=== PATIENT | male | born 1960 | race Two or more races ===

== ENCOUNTER 2018-10-25 16:24 | Inpatient (IN) | payer OTHER ==
[2018-10-25 17:56] VITALS: BMI 22.4
--- NOTE | 2018-10-25 21:29 | HP ---
CIWA Score - Admission Criteria OASAS Guidelines: Admission for Medically Managed Detox: Requires at least one of the followin. CIWA greater than 12 2. Seizures within the past 24 hours 3. Delirium tremens within the past 24 hours 4. Hallucinations within the past 24 hours 5. Acute intervention needed for co occurring medical disorder 6. Acute intervention needed for co occurring psychiatric disorder 7. Severe withdrawal that cannot be handled at a lower level of care (continued vomiting, continued diarrhea, abnormal vital signs) requiring intravenous medication and/or fluids 8. Admission ROS S - HPI Chief Complaint: Seeking admission to Rehab Allergies/Adverse Reactions: Allergies Allergy/AdvReac Type Severity Reaction Status Date / Time No Known Allergies Allergy Verified 10/25/18 20:15 History of Present Illness: 58 years old male with alcohol, cocaine and heroin dependence is seeking admission to rehab. Patient has medical history of Hep C, COPD, depression and anxiety. He reports suicide attempt in 2013 and denies suicidal ideation at this time. He is on methadone 70mg at [facility]. Dose is to be confirmed by the nurse Exam Limitations: No Limitations - Ebola screening Have you traveled outside of the country in the last 21 days: No (N) Have you had contact with anyone from an Ebola affected area: No Have you been sick,other than usual withdrawal symptoms: No Do you have a fever: No - Review of Systems Constitutional: No Symptoms Reported EENT: reports: No Symptoms Reported Respiratory: reports: No Symptoms reported Cardiac: reports: No Symptoms Reported GI: reports: No Symptoms Reported : reports: No Symptoms Reported Musculoskeletal: reports: No Symptoms Reported Integumentary: reports: No Symptoms Reported Neuro: reports: No Symptoms reported Endocrine: reports: No Symptoms Reported Hematology: reports: No Symptoms Reported Psychiatric: reports: No Sypmtoms Reported, Mood/Affect Appropiate, Orientated x3 Other Systems: Reviewed and Negative Patient History - Patient Medical History Hx Anemia: No Hx Asthma: No Hx Chronic Obstructive Pulmonary Disease (COPD): Yes (Not on medication) Hx Cancer: No Hx Cardiac Disorders: No Hx Congestive Heart Failure: No Hx Hypertension: No Hx Hypercholesterolemia: No Hx Pacemaker: No HX Cerebrovascular Accident: No Hx Seizures: No Hx Dementia: No Hx Diabetes: No Hx Gastrointestinal Disorders: No Hx Liver Disease: Yes (Hep C) Hx Genitourinary Disorders: No Hx Sexually Transmitted Disorders: No Hx Renal Disease (ESRD): No Hx Thyroid Disease: No Hx Human Immunodeficiency Virus (HIV): No (Negative 2017) Hx Hepatitis C: Yes (Not on medication) Hx Depression: Yes (Trazodone, Zyprexa) Hx Suicide Attempt: Yes (Attempt in 2014. Denies suicidal ideation at this time) Hx Bipolar Disorder: Yes Hx Schizophrenia: Yes Other Medical History: Anxiety - Not on medication - Patient Surgical History Past Surgical History: No - PPD History Previous Implant?: Yes Documented Results: Negative w/o proof Implanted On Prior R Admission?: No PPD to be Administered?: Yes - Reproductive History Patient is a Female of Child Bearing Age (11 -55 yrs old): No (Male) - Smoking Cessation Smoking history: Current every day smoker Have you smoked in the past 12 months: Yes Aproximately how many cigarettes per day: 6 Hx Chewing Tobacco Use: No Initiated information on smoking cessation: Yes 'Breaking Loose' booklet given: 10/25/18 - Substance & Tx. History Hx Alcohol Use: Yes Hx Substance Use: Yes Substance Use Type: Alcohol, Cocaine, Heroin Hx Substance Use Treatment: Yes ([facility]) - Substances Abused Alcohol Route: Oral Frequency: Daily Amount used: BEER 10 X 40 OZ Age of first use: 14 Date of Last Use: 09/18/18 Heroin Route: Injection Frequency: Daily Amount used: $80 Age of first use: 39 Date of Last Use: 09/18/18 Family Disease History - Family Disease History Family History: Denies Admission Physical Exam BHS - Vital Signs Vital Signs: Vital Signs - 24 hr 10/25/18 17:33 Temperature 97.7 F Pulse Rate 64 Respiratory 18 Rate Blood Pressure 112/68 - Physical General Appearance: Yes: No Apparent Distress HEENTM: Yes: EOMI, Normal ENT Inspection, Normocephalic, Normal Voice, FEROZ Respiratory: Yes: Lungs Clear, Normal Breath Sounds, No Respiratory Distress Neck: Yes: Supple Breast: Yes: Breast Exam Deferred Cardiology: Yes: Regular Rhythm, Regular Rate Abdominal: Yes: Normal Bowel Sounds Genitourinary: Yes: Within Normal Limits Back: Yes: Normal Inspection Musculoskeletal: Yes: Within Normal Limits Extremities: Yes: Normal Inspection Neurological: Yes: 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 NML intact, Alert, Normal Mood/Affect Integumentary: Yes: Warm Lymphatic: Yes: Within Normal Limits - Diagnostic (1) Cocaine dependence Current Visit: Yes Status: Chronic Qualifiers: Substance use status: uncomplicated Qualified Code(s): F14.20 - Cocaine dependence, uncomplicated (2) Heroin dependence Current Visit: Yes Status: Chronic (3) Alcohol dependence Current Visit: Yes Status: Chronic Qualifiers: Substance use status: uncomplicated Qualified Code(s): F10.20 - Alcohol dependence, uncomplicated (4) COPD (chronic obstructive pulmonary disease) Current Visit: Yes Status: Chronic Qualifiers: COPD type: unspecified COPD Qualified Code(s): J44.9 - Chronic obstructive pulmonary disease, unspecified (5) Hep C w/o coma, chronic Current Visit: Yes Status: Chronic (6) Nicotine dependence Current Visit: Yes Status: Chronic Qualifiers: Nicotine product type: cigarettes Substance use status: uncomplicated Qualified Code(s): F17.210 - Nicotine dependence, cigarettes, uncomplicated Cleared for Admission B[facility] - Detox or Rehab [facility] Level of Care: Observation Bed Claeared for Rehab Admission: Yes [facility] Breath Alcohol Content Breath Alcohol Content: 0 Urine Drug Screen - Results Drug Screen Negative: No Urine Drug Screen Results: MTD-Methadone Inpatient Rehab Admission - Initial Determination Are CD services needed?: Yes Free of communicable disease: Yes Not in need of hospitalization: Yes - Rehab Admission Criteria Previous failed treatment: Yes Poor recovery environment: Yes Comorbidities: Yes Lacks judgement: No Patient is meeting Inpatient Rehab admission criteria:: Yes
[2018-10-25] MEDS ORDERED: P-EPHED 60MG/TRIPROLIDI 2.5MG TABLET PO PRN (21:54)
[2018-10-25] MEDS ORDERED: MAGNESIUM CITRATE 300 ML BOTTLE PO PRN (21:54)
[2018-10-25] MEDS ORDERED: LOPERAMIDE HCL 2 MG CAPSULE PO PRN (21:54)
[2018-10-25] MEDS ORDERED: MAG HYDROX/AL HYDROX/SIMETH 30 ML UNIT-DOSE CUP PO PRN (21:54)
[2018-10-25] MEDS ORDERED: ACETAMINOPHEN 325 MG TABLET (FP) PO PRN (21:54)
[2018-10-25] MEDS ORDERED: guaiFENesin/D-METHORPHAN HB 10 ML UNIT-DOSE CUPS PO PRN (21:54)
[2018-10-25] MEDS ORDERED: NICOTINE POLACRILEX 2 MG GUM BC PRN (21:54)
[2018-10-25] MEDS ORDERED: IBUPROFEN 400 MG TABLET (FP) PO PRN (21:54)
[2018-10-25] MEDS ORDERED: TUBERCULIN PPD 5 TU/0.1ML VIAL ID ONE (23:57)
[2018-10-26] MEDS: MELATONIN 5 MG TABLETS PO PRN (00:10)
[2018-10-26] MEDS: THIAMINE HCL 100 MG TABLET (FP) PO SCH ×2 (00:10→21:29)
[2018-10-26 03:46] LABS: URINE APPEARANCE CLEAR; URINE BILIRUBIN NEGATIVE (<2.0 mg/dL); URINE COLOR YELLOW; URINE GLUCOSE (UA) NEGATIVE (NEGATIVE); URINE KETONE NEGATIVE (NEGATIVE); URINE LEUK ESTERASE NEGATIVE (NEGATIVE); URINE NITRITE NEGATIVE (NEGATIVE); URINE PROTEIN NEGATIVE (NEGATIVE); URINE UROBILINOGEN NEGATIVE mg/dL (0.2-1.0)
[2018-10-26] MEDS: MAGNESIUM HYDROX 2400MG/30ML ORAL SUSPENSION 30 ML CUP PO PRN (06:27)
[2018-10-26] MEDS ORDERED: METHADONE HCL 10 MG TABLET PO SCH (09:30)
[2018-10-26] MEDS: PRENATAL VITAMINS W/ FOLIC ACID TABLET (FP) PO SCH (09:42)
[2018-10-26] MEDS: NICOTINE 14 MG/24 HOURS TOPICAL PATCH TD SCH (09:42)
[2018-10-26] MEDS: APIXABAN 5 MG TABLET PO SCH ×2 (09:42→21:29)
[2018-10-26 11:15] LABS: HEMATOCRIT 35.5 % (35.4-49); HEMOGLOBIN 11.9 GM/dL (11.7-16.9); MCH 32.7 pg (25.7-33.7); MCHC 33.5 g/dl (32.0-35.9); MEAN CELL VOLUME 97.6 fl (80-96); PLATELET COUNT 189 K/MM3 (134-434); RBC 3.64 M/mm3 (4.00-5.60); WHITE BLOOD COUNT 5.8 K/mm3 (4.0-10.0)
[2018-10-26 12:18] LABS: ALBUMIN 3.4 g/dl (3.4-5.0); ALK PHOS 105 U/L (45-117); ANION GAP 9 MMOL/L (8-16); BILIRUBIN,TOTAL 0.2 mg/dL (0.2-1); BLOOD UREA NITROGEN 17 mg/dL (7-18); CALCIUM 8.6 mg/dL (8.5-10.1); CHLORIDE 101 mmol/L (98-107); CO2 30 mmol/L (21-32); CREATININE 0.8 mg/dL (0.55-1.3); GLUCOSE,RANDOM 103 mg/dL (74-106); POTASSIUM 4.2 mmol/L (3.5-5.1); SGOT/AST 30 U/L (15-37); SGPT/ALT 45 U/L (13-61); SODIUM 140 mmol/L (136-145)
[2018-10-26] MEDS: DOCUSATE SODIUM 100 MG CAPSULE (FP) PO SCH ×2 (14:43→21:29)
--- NOTE | 2018-10-26 19:39 | PN ---
Barb Progress Note Note: Psychiatric nurse practitioner software implementation specialist note: Call received by RN requesting patient's psychotropic medications. Unstacker able to speak to patient. Patient alert and oriented X3. Patient admitted to [facility] this morning. States he has not received his psychotropic medications in 24 hours. Reports taking zyprexa 10mg BID + remeron 30mg + Trazodone 50mg HS. Mr Bertrand reports compliance with his medication regimen. Patient was recently discharged from [facility]. Pharmacy claims reviewed and noted prescriptions for zyprexa 10mg BID + remeron 30mg qhs + Trazodone 50mg was electronically sent to patient's pharmacy on 10/25/18. Patient informed that his evening medications will be ordered. Morning dose of zyprexa 10mg will not be ordered until patient is seen by in house psychiatrist in the morning. Patient agreeable with plan.
[2018-10-26] MEDS: MIRTAZAPINE 30 MG TABLET (FP) PO SCH (21:29)
[2018-10-26] MEDS: OLANZapine 10 MG TABLET PO SCH (21:29)
[2018-10-26] MEDS: traZODone HCL 50 MG TABLET (FP) PO SCH (21:29)
[2018-10-27] MEDS ORDERED: METHADONE HCL 10 MG TABLET ONE (04:10)
[2018-10-27] MEDS ORDERED: METHADONE HCL 40 MG DISPERSABLE TABLET ONE (04:10)
[2018-10-27] MEDS: DOCUSATE SODIUM 100 MG CAPSULE (FP) PO SCH ×3 (05:46→21:36)
[2018-10-27] MEDS: METHADONE 40 MG, METHADONE 30 MG PO SCH (05:46)
[2018-10-27] MEDS: PRENATAL VITAMINS W/ FOLIC ACID TABLET (FP) PO SCH (10:03)
[2018-10-27] MEDS: APIXABAN 5 MG TABLET PO SCH ×2 (10:04→21:36)
[2018-10-27] MEDS: NICOTINE 14 MG/24 HOURS TOPICAL PATCH TD SCH (10:04)
[2018-10-27] MEDS ORDERED: OLANZapine 10 MG TABLET PO ONE (11:45)
[2018-10-27] MEDS: hydrOXYzine PAMOATE 50 MG CAPSULE (FP) PO PRN ×2 (17:53→23:52)
[2018-10-27] MEDS: MELATONIN 5 MG TABLETS PO PRN (21:36)
[2018-10-27] MEDS: THIAMINE HCL 100 MG TABLET (FP) PO SCH (21:36)
[2018-10-27] MEDS: OLANZapine 10 MG TABLET PO SCH (21:36)
[2018-10-27] MEDS: traZODone HCL 50 MG TABLET (FP) PO SCH (21:36)
[2018-10-27] MEDS: MIRTAZAPINE 30 MG TABLET (FP) PO SCH (21:36)
[2018-10-27] MEDS ORDERED: PT OWN MED DRAWER 7, Y5N ONE (22:21)
[2018-10-27] MEDS: MAGNESIUM HYDROX 2400MG/30ML ORAL SUSPENSION 30 ML CUP PO PRN (22:22)
[2018-10-28] MEDS ORDERED: METHADONE HCL 10 MG TABLET ONE (02:45)
[2018-10-28] MEDS ORDERED: METHADONE HCL 40 MG DISPERSABLE TABLET ONE (02:45)
[2018-10-28] MEDS: METHADONE 40 MG, METHADONE 30 MG PO SCH (06:06)
[2018-10-28] MEDS: hydrOXYzine PAMOATE 50 MG CAPSULE (FP) PO PRN ×4 (06:06→21:15)
[2018-10-28] MEDS: DOCUSATE SODIUM 100 MG CAPSULE (FP) PO SCH ×3 (06:06→21:14)
[2018-10-28] MEDS: PRENATAL VITAMINS W/ FOLIC ACID TABLET (FP) PO SCH (10:36)
[2018-10-28] MEDS: NICOTINE 14 MG/24 HOURS TOPICAL PATCH TD SCH (10:36)
[2018-10-28] MEDS: APIXABAN 5 MG TABLET PO SCH ×2 (10:36→21:14)
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
[2018-10-28] MEDS: THIAMINE HCL 100 MG TABLET (FP) PO SCH (21:14)
[2018-10-28] MEDS: traZODone HCL 50 MG TABLET (FP) PO SCH (21:14)
[2018-10-28] MEDS: MIRTAZAPINE 30 MG TABLET (FP) PO SCH (21:14)
[2018-10-28] MEDS: OLANZapine 10 MG TABLET PO SCH (21:14)
[2018-10-29] MEDS: hydrOXYzine PAMOATE 50 MG CAPSULE (FP) PO PRN ×4 (03:11→21:30)
[2018-10-29] MEDS ORDERED: METHADONE HCL 10 MG TABLET ONE (04:21)
[2018-10-29] MEDS ORDERED: METHADONE HCL 40 MG DISPERSABLE TABLET ONE (04:21)
[2018-10-29] MEDS: METHADONE 40 MG, METHADONE 30 MG PO SCH (06:02)
[2018-10-29] MEDS: DOCUSATE SODIUM 100 MG CAPSULE (FP) PO SCH ×3 (06:02→21:30)
--- NOTE | 2018-10-29 09:25 | PN ---
BHS Progress Note Note: PATIENT C/O ITCHING AND DRY EYES. HAS H/O SEASONAL ALLERGIES. EYE EXAM: +PERRLA , EOMS INTACT BL, MILD REDNESS OF CONJUNCTIVAE B/L. WILL ORDER VISINE I DROP OU QID AND CONTINUE TO MONITOR CLINICALLY.
[2018-10-29] MEDS: APIXABAN 5 MG TABLET PO SCH ×2 (10:16→21:30)
[2018-10-29] MEDS: PRENATAL VITAMINS W/ FOLIC ACID TABLET (FP) PO SCH (10:16)
[2018-10-29] MEDS: NICOTINE 14 MG/24 HOURS TOPICAL PATCH TD SCH (10:16)
[2018-10-29] MEDS: NAPHAZOLINE/PHENIRAMINE OPHTHALMIC 15 ML BOTTLE OU PRN ×2 (13:26→21:29)
--- NOTE | 2018-10-29 14:42 | PN ---
Barb Progress Note Note: Psychiatric nurse practitioner note: Chart reviewed. Pharmacy claims reviewed. Patient with a history of schizophrenia vs. schizoaffetive disorder. He was recently discharged from [facility]. Patient's home medications are: zyprexa 10mg BID + Mirtzapine 30mg qhs + trazodone 50mg qhs. Patient able to tolerate evening dose. No adverse effects noted. Will resume patient on zyprexa 10mg BID.
[2018-10-29] MEDS: OLANZapine 10 MG TABLET PO SCH ×2 (14:54→21:30)
[2018-10-29] MEDS: traZODone HCL 50 MG TABLET (FP) PO SCH (21:30)
[2018-10-29] MEDS: MIRTAZAPINE 30 MG TABLET (FP) PO SCH (21:30)
[2018-10-29] MEDS: THIAMINE HCL 100 MG TABLET (FP) PO SCH (21:30)
[2018-10-29] MEDS: MELATONIN 5 MG TABLETS PO PRN (21:30)
[2018-10-29] MEDS ORDERED: OLANZapine 10 MG TABLET PO SCH (22:00)
[2018-10-30] MEDS ORDERED: METHADONE HCL 10 MG TABLET ONE (04:33)
[2018-10-30] MEDS ORDERED: METHADONE HCL 40 MG DISPERSABLE TABLET ONE (04:33)
[2018-10-30] MEDS: METHADONE 40 MG, METHADONE 30 MG PO SCH (06:06)
[2018-10-30] MEDS: DOCUSATE SODIUM 100 MG CAPSULE (FP) PO SCH ×3 (06:06→21:03)
[2018-10-30] MEDS: NAPHAZOLINE/PHENIRAMINE OPHTHALMIC 15 ML BOTTLE OU PRN ×3 (06:30→16:37)
[2018-10-30] MEDS: hydrOXYzine PAMOATE 50 MG CAPSULE (FP) PO PRN ×3 (06:31→15:50)
[2018-10-30] MEDS: OLANZapine 10 MG TABLET PO SCH ×2 (09:58→21:03)
[2018-10-30] MEDS: NICOTINE 14 MG/24 HOURS TOPICAL PATCH TD SCH (09:58)
[2018-10-30] MEDS: PRENATAL VITAMINS W/ FOLIC ACID TABLET (FP) PO SCH (09:58)
[2018-10-30] MEDS: APIXABAN 5 MG TABLET PO SCH ×2 (09:58→21:03)
[2018-10-30] MEDS: MIRTAZAPINE 30 MG TABLET (FP) PO SCH (21:03)
[2018-10-30] MEDS: MELATONIN 5 MG TABLETS PO PRN (21:03)
[2018-10-30] MEDS: traZODone HCL 50 MG TABLET (FP) PO SCH (21:03)
[2018-10-30] MEDS: THIAMINE HCL 100 MG TABLET (FP) PO SCH (22:02)
[2018-10-31] MEDS ORDERED: METHADONE HCL 10 MG TABLET ONE (04:04)
[2018-10-31] MEDS ORDERED: METHADONE HCL 40 MG DISPERSABLE TABLET ONE (04:04)
[2018-10-31] MEDS: DOCUSATE SODIUM 100 MG CAPSULE (FP) PO SCH ×3 (05:50→21:08)
[2018-10-31] MEDS: METHADONE 40 MG, METHADONE 30 MG PO SCH (05:50)
[2018-10-31] MEDS: hydrOXYzine PAMOATE 50 MG CAPSULE (FP) PO PRN ×4 (05:51→19:54)
[2018-10-31] MEDS: NAPHAZOLINE/PHENIRAMINE OPHTHALMIC 15 ML BOTTLE OU PRN ×3 (06:13→17:45)
[2018-10-31] MEDS ORDERED: PT OWN MED DRAWER 7, Y5N ONE ×2 (06:14→09:04)
[2018-10-31] MEDS: PRENATAL VITAMINS W/ FOLIC ACID TABLET (FP) PO SCH (09:57)
[2018-10-31] MEDS: OLANZapine 10 MG TABLET PO SCH ×2 (09:57→21:08)
[2018-10-31] MEDS: APIXABAN 5 MG TABLET PO SCH ×2 (09:57→21:08)
[2018-10-31] MEDS: NICOTINE 14 MG/24 HOURS TOPICAL PATCH TD SCH (09:58)
[2018-10-31] MEDS: THIAMINE HCL 100 MG TABLET (FP) PO SCH (21:08)
[2018-10-31] MEDS: MIRTAZAPINE 30 MG TABLET (FP) PO SCH (21:08)
[2018-10-31] MEDS: traZODone HCL 50 MG TABLET (FP) PO SCH (21:08)
[2018-10-31] MEDS: MELATONIN 5 MG TABLETS PO PRN (21:08)
[2018-11-01] MEDS ORDERED: METHADONE HCL 40 MG DISPERSABLE TABLET ONE (03:47)
[2018-11-01] MEDS ORDERED: METHADONE HCL 10 MG TABLET ONE (03:47)
[2018-11-01] MEDS: DOCUSATE SODIUM 100 MG CAPSULE (FP) PO SCH ×3 (05:51→21:24)
[2018-11-01] MEDS: METHADONE 40 MG, METHADONE 30 MG PO SCH (05:51)
[2018-11-01] MEDS: hydrOXYzine PAMOATE 50 MG CAPSULE (FP) PO PRN ×4 (08:28→21:24)
[2018-11-01] MEDS: PRENATAL VITAMINS W/ FOLIC ACID TABLET (FP) PO SCH (10:07)
[2018-11-01] MEDS: NICOTINE 14 MG/24 HOURS TOPICAL PATCH TD SCH (10:07)
[2018-11-01] MEDS: APIXABAN 5 MG TABLET PO SCH ×2 (10:07→21:24)
[2018-11-01] MEDS: OLANZapine 10 MG TABLET PO SCH ×2 (10:07→21:24)
[2018-11-01] MEDS: NAPHAZOLINE/PHENIRAMINE OPHTHALMIC 15 ML BOTTLE OU PRN (12:01)
[2018-11-01] MEDS: MAGNESIUM HYDROX 2400MG/30ML ORAL SUSPENSION 30 ML CUP PO PRN (12:59)
[2018-11-01] MEDS: traZODone HCL 50 MG TABLET (FP) PO SCH (21:24)
[2018-11-01] MEDS: THIAMINE HCL 100 MG TABLET (FP) PO SCH (21:24)
[2018-11-01] MEDS: MELATONIN 5 MG TABLETS PO PRN (21:24)
[2018-11-01] MEDS: MIRTAZAPINE 30 MG TABLET (FP) PO SCH (21:24)
[2018-11-02] MEDS ORDERED: METHADONE HCL 10 MG TABLET ONE (05:56)
[2018-11-02] MEDS ORDERED: METHADONE HCL 40 MG DISPERSABLE TABLET ONE (05:56)
[2018-11-02] MEDS: DOCUSATE SODIUM 100 MG CAPSULE (FP) PO SCH ×3 (06:07→21:03)
[2018-11-02] MEDS: METHADONE 40 MG, METHADONE 30 MG PO SCH (06:07)
[2018-11-02] MEDS: hydrOXYzine PAMOATE 50 MG CAPSULE (FP) PO PRN ×4 (06:44→19:22)
[2018-11-02] MEDS: OLANZapine 10 MG TABLET PO SCH ×2 (10:15→21:03)
[2018-11-02] MEDS: APIXABAN 5 MG TABLET PO SCH ×2 (10:15→21:03)
[2018-11-02] MEDS: PRENATAL VITAMINS W/ FOLIC ACID TABLET (FP) PO SCH (10:15)
[2018-11-02] MEDS: NICOTINE 14 MG/24 HOURS TOPICAL PATCH TD SCH (10:16)
[2018-11-02] MEDS: MAGNESIUM HYDROX 2400MG/30ML ORAL SUSPENSION 30 ML CUP PO PRN (11:29)
[2018-11-02] MEDS: MIRTAZAPINE 30 MG TABLET (FP) PO SCH (21:02)
[2018-11-02] MEDS: traZODone HCL 50 MG TABLET (FP) PO SCH (21:03)
[2018-11-02] MEDS: THIAMINE HCL 100 MG TABLET (FP) PO SCH (21:03)
[2018-11-03] MEDS ORDERED: METHADONE HCL 40 MG DISPERSABLE TABLET ONE (03:02)
[2018-11-03] MEDS ORDERED: METHADONE HCL 10 MG TABLET ONE (03:02)
[2018-11-03] MEDS: DOCUSATE SODIUM 100 MG CAPSULE (FP) PO SCH ×3 (06:06→21:23)
[2018-11-03] MEDS: hydrOXYzine PAMOATE 50 MG CAPSULE (FP) PO PRN ×3 (06:06→19:55)
[2018-11-03] MEDS: METHADONE 40 MG, METHADONE 30 MG PO SCH (06:06)
[2018-11-03] MEDS: OLANZapine 10 MG TABLET PO SCH ×2 (10:31→21:23)
[2018-11-03] MEDS: NICOTINE 14 MG/24 HOURS TOPICAL PATCH TD SCH (10:31)
[2018-11-03] MEDS: APIXABAN 5 MG TABLET PO SCH ×2 (10:31→21:23)
[2018-11-03] MEDS: PRENATAL VITAMINS W/ FOLIC ACID TABLET (FP) PO SCH (10:31)
[2018-11-03] MEDS: NAPHAZOLINE/PHENIRAMINE OPHTHALMIC 15 ML BOTTLE OU PRN (11:34)
[2018-11-03] MEDS ORDERED: PT OWN MED DRAWER 7, Y5N ONE (11:36)
[2018-11-03] MEDS: MIRTAZAPINE 30 MG TABLET (FP) PO SCH (21:22)
[2018-11-03] MEDS: traZODone HCL 50 MG TABLET (FP) PO SCH (21:23)
[2018-11-03] MEDS: THIAMINE HCL 100 MG TABLET (FP) PO SCH (21:23)
[2018-11-04] MEDS ORDERED: METHADONE HCL 40 MG DISPERSABLE TABLET ONE (04:19)
[2018-11-04] MEDS ORDERED: METHADONE HCL 10 MG TABLET ONE (04:19)
[2018-11-04] MEDS: METHADONE 40 MG, METHADONE 30 MG PO SCH (05:44)
[2018-11-04] MEDS: DOCUSATE SODIUM 100 MG CAPSULE (FP) PO SCH ×3 (05:44→21:10)
[2018-11-04] MEDS: hydrOXYzine PAMOATE 50 MG CAPSULE (FP) PO PRN ×3 (05:58→21:10)
[2018-11-04] MEDS: NICOTINE 14 MG/24 HOURS TOPICAL PATCH TD SCH (09:53)
[2018-11-04] MEDS: APIXABAN 5 MG TABLET PO SCH ×2 (09:53→21:10)
[2018-11-04] MEDS: PRENATAL VITAMINS W/ FOLIC ACID TABLET (FP) PO SCH (09:53)
[2018-11-04] MEDS: OLANZapine 10 MG TABLET PO SCH ×2 (09:53→21:12)
[2018-11-04] MEDS: NAPHAZOLINE/PHENIRAMINE OPHTHALMIC 15 ML BOTTLE OU PRN ×2 (09:54→21:23)
[2018-11-04] MEDS: traZODone HCL 50 MG TABLET (FP) PO SCH (21:10)
[2018-11-04] MEDS: MIRTAZAPINE 30 MG TABLET (FP) PO SCH (21:10)
[2018-11-04] MEDS: MELATONIN 5 MG TABLETS PO PRN (21:10)
[2018-11-04] MEDS: THIAMINE HCL 100 MG TABLET (FP) PO SCH (21:12)
[2018-11-04] MEDS ORDERED: PT OWN MED DRAWER 7, Y5N ONE (21:22)
[2018-11-05] MEDS ORDERED: METHADONE HCL 10 MG TABLET ONE (04:12)
[2018-11-05] MEDS ORDERED: METHADONE HCL 40 MG DISPERSABLE TABLET ONE (04:13)
[2018-11-05] MEDS: METHADONE 40 MG, METHADONE 30 MG PO SCH (05:53)
[2018-11-05] MEDS: DOCUSATE SODIUM 100 MG CAPSULE (FP) PO SCH ×3 (05:53→21:25)
[2018-11-05] MEDS: hydrOXYzine PAMOATE 50 MG CAPSULE (FP) PO PRN ×4 (05:55→21:25)
[2018-11-05] MEDS: NAPHAZOLINE/PHENIRAMINE OPHTHALMIC 15 ML BOTTLE OU PRN (10:12)
[2018-11-05] MEDS: OLANZapine 10 MG TABLET PO SCH ×2 (10:13→21:25)
[2018-11-05] MEDS: APIXABAN 5 MG TABLET PO SCH ×2 (10:13→21:25)
[2018-11-05] MEDS: PRENATAL VITAMINS W/ FOLIC ACID TABLET (FP) PO SCH (10:13)
[2018-11-05] MEDS: NICOTINE 14 MG/24 HOURS TOPICAL PATCH TD SCH (10:13)
[2018-11-05] MEDS: SELENIUM SULFIDE 2.25% 180 ML SHAMPOO TP SCH (14:11)
[2018-11-05] MEDS: MENTHOL/PHENOL 1 EACH UD MM PRN (15:11)
[2018-11-05] MEDS: MIRTAZAPINE 30 MG TABLET (FP) PO SCH (21:25)
[2018-11-05] MEDS: THIAMINE HCL 100 MG TABLET (FP) PO SCH (21:25)
[2018-11-05] MEDS: traZODone HCL 50 MG TABLET (FP) PO SCH (21:25)
[2018-11-05] MEDS: MELATONIN 5 MG TABLETS PO PRN (21:25)
[2018-11-06] MEDS ORDERED: METHADONE HCL 10 MG TABLET ONE (04:07)
[2018-11-06] MEDS ORDERED: METHADONE HCL 40 MG DISPERSABLE TABLET ONE (04:07)
[2018-11-06] MEDS: NAPHAZOLINE/PHENIRAMINE OPHTHALMIC 15 ML BOTTLE OU PRN ×3 (05:59→21:09)
[2018-11-06] MEDS: hydrOXYzine PAMOATE 50 MG CAPSULE (FP) PO PRN ×3 (05:59→14:23)
[2018-11-06] MEDS: DOCUSATE SODIUM 100 MG CAPSULE (FP) PO SCH ×3 (05:59→21:10)
[2018-11-06] MEDS: METHADONE 40 MG, METHADONE 30 MG PO SCH (05:59)
[2018-11-06] MEDS ORDERED: PT OWN MED DRAWER 7, Y5N ONE (05:59)
[2018-11-06] MEDS: MENTHOL/PHENOL 1 EACH UD MM PRN (08:25)
[2018-11-06] MEDS: SELENIUM SULFIDE 2.25% 180 ML SHAMPOO TP SCH (10:13)
[2018-11-06] MEDS: NICOTINE 14 MG/24 HOURS TOPICAL PATCH TD SCH (10:13)
[2018-11-06] MEDS: PRENATAL VITAMINS W/ FOLIC ACID TABLET (FP) PO SCH (10:13)
[2018-11-06] MEDS: OLANZapine 10 MG TABLET PO SCH ×2 (10:13→21:10)
[2018-11-06] MEDS: APIXABAN 5 MG TABLET PO SCH ×2 (10:13→21:10)
[2018-11-06] MEDS: traZODone HCL 50 MG TABLET (FP) PO SCH (21:10)
[2018-11-06] MEDS: THIAMINE HCL 100 MG TABLET (FP) PO SCH (21:10)
[2018-11-06] MEDS: MIRTAZAPINE 30 MG TABLET (FP) PO SCH (21:10)
[2018-11-07] MEDS ORDERED: METHADONE HCL 40 MG DISPERSABLE TABLET ONE (02:47)
[2018-11-07] MEDS ORDERED: METHADONE HCL 10 MG TABLET ONE (02:47)
[2018-11-07] MEDS: DOCUSATE SODIUM 100 MG CAPSULE (FP) PO SCH ×3 (06:11→21:29)
[2018-11-07] MEDS: hydrOXYzine PAMOATE 50 MG CAPSULE (FP) PO PRN ×4 (06:11→21:29)
[2018-11-07] MEDS: METHADONE 40 MG, METHADONE 30 MG PO SCH (06:11)
[2018-11-07] MEDS: APIXABAN 5 MG TABLET PO SCH ×2 (10:19→21:29)
[2018-11-07] MEDS: PRENATAL VITAMINS W/ FOLIC ACID TABLET (FP) PO SCH (10:19)
[2018-11-07] MEDS: NAPHAZOLINE/PHENIRAMINE OPHTHALMIC 15 ML BOTTLE OU PRN (10:19)
[2018-11-07] MEDS: OLANZapine 10 MG TABLET PO SCH ×2 (10:19→21:29)
[2018-11-07] MEDS: NICOTINE 14 MG/24 HOURS TOPICAL PATCH TD SCH (10:20)
[2018-11-07] MEDS: SELENIUM SULFIDE 2.25% 180 ML SHAMPOO TP SCH (10:20)
[2018-11-07] MEDS: MAGNESIUM HYDROX 2400MG/30ML ORAL SUSPENSION 30 ML CUP PO PRN (19:24)
[2018-11-07] MEDS: traZODone HCL 50 MG TABLET (FP) PO SCH (21:29)
[2018-11-07] MEDS: MELATONIN 5 MG TABLETS PO PRN (21:29)
[2018-11-07] MEDS: MIRTAZAPINE 30 MG TABLET (FP) PO SCH (21:29)
[2018-11-07] MEDS: THIAMINE HCL 100 MG TABLET (FP) PO SCH (21:29)
[2018-11-08] MEDS ORDERED: METHADONE HCL 40 MG DISPERSABLE TABLET ONE (05:58)
[2018-11-08] MEDS ORDERED: METHADONE HCL 10 MG TABLET ONE (05:58)
[2018-11-08] MEDS: METHADONE 40 MG, METHADONE 30 MG PO SCH (06:05)
[2018-11-08] MEDS: DOCUSATE SODIUM 100 MG CAPSULE (FP) PO SCH ×3 (06:05→21:13)
[2018-11-08] MEDS: hydrOXYzine PAMOATE 50 MG CAPSULE (FP) PO PRN ×4 (06:05→21:13)
[2018-11-08] MEDS: NAPHAZOLINE/PHENIRAMINE OPHTHALMIC 15 ML BOTTLE OU PRN ×2 (09:45→21:13)
[2018-11-08] MEDS: APIXABAN 5 MG TABLET PO SCH ×2 (09:45→21:13)
[2018-11-08] MEDS: PRENATAL VITAMINS W/ FOLIC ACID TABLET (FP) PO SCH (09:45)
[2018-11-08] MEDS: OLANZapine 10 MG TABLET PO SCH ×2 (09:45→21:13)
[2018-11-08] MEDS: SELENIUM SULFIDE 2.25% 180 ML SHAMPOO TP SCH (09:46)
[2018-11-08] MEDS: NICOTINE 14 MG/24 HOURS TOPICAL PATCH TD SCH (09:46)
[2018-11-08] MEDS: traZODone HCL 50 MG TABLET (FP) PO SCH (21:13)
[2018-11-08] MEDS: THIAMINE HCL 100 MG TABLET (FP) PO SCH (21:13)
[2018-11-08] MEDS: MAGNESIUM HYDROX 2400MG/30ML ORAL SUSPENSION 30 ML CUP PO PRN (21:13)
[2018-11-08] MEDS: MIRTAZAPINE 30 MG TABLET (FP) PO SCH (21:14)
[2018-11-08] MEDS: MELATONIN 5 MG TABLETS PO PRN (21:14)
[2018-11-09] MEDS ORDERED: METHADONE HCL 10 MG TABLET ONE (03:10)
[2018-11-09] MEDS ORDERED: METHADONE HCL 40 MG DISPERSABLE TABLET ONE (03:10)
[2018-11-09] MEDS: hydrOXYzine PAMOATE 50 MG CAPSULE (FP) PO PRN ×4 (06:08→21:11)
[2018-11-09] MEDS: DOCUSATE SODIUM 100 MG CAPSULE (FP) PO SCH ×3 (06:08→21:11)
[2018-11-09] MEDS: METHADONE 40 MG, METHADONE 30 MG PO SCH (06:08)
[2018-11-09] MEDS: PRENATAL VITAMINS W/ FOLIC ACID TABLET (FP) PO SCH (10:15)
[2018-11-09] MEDS: OLANZapine 10 MG TABLET PO SCH ×2 (10:15→21:11)
[2018-11-09] MEDS: NAPHAZOLINE/PHENIRAMINE OPHTHALMIC 15 ML BOTTLE OU PRN ×2 (10:15→21:11)
[2018-11-09] MEDS: APIXABAN 5 MG TABLET PO SCH ×2 (10:15→21:11)
[2018-11-09] MEDS: LIDOCAINE 5% TOPICAL PATCH TP SCH (10:16)
[2018-11-09] MEDS: NICOTINE 14 MG/24 HOURS TOPICAL PATCH TD SCH (10:16)
[2018-11-09] MEDS: SELENIUM SULFIDE 2.25% 180 ML SHAMPOO TP SCH (10:18)
[2018-11-09] MEDS: MAGNESIUM HYDROX 2400MG/30ML ORAL SUSPENSION 30 ML CUP PO PRN (11:33)
[2018-11-09] MEDS: MELATONIN 5 MG TABLETS PO PRN (21:11)
[2018-11-09] MEDS: MIRTAZAPINE 30 MG TABLET (FP) PO SCH (21:11)
[2018-11-09] MEDS: traZODone HCL 50 MG TABLET (FP) PO SCH (21:11)
[2018-11-09] MEDS: THIAMINE HCL 100 MG TABLET (FP) PO SCH (21:11)
[2018-11-09] MEDS: LIDOCAINE PATCH REMOVAL MC SCH (21:12)
[2018-11-10] MEDS ORDERED: METHADONE HCL 40 MG DISPERSABLE TABLET ONE (02:38)
[2018-11-10] MEDS ORDERED: METHADONE HCL 10 MG TABLET ONE (02:38)
[2018-11-10] MEDS: DOCUSATE SODIUM 100 MG CAPSULE (FP) PO SCH ×3 (06:28→21:40)
[2018-11-10] MEDS: hydrOXYzine PAMOATE 50 MG CAPSULE (FP) PO PRN ×4 (06:28→19:34)
[2018-11-10] MEDS: METHADONE 40 MG, METHADONE 30 MG PO SCH (06:28)
[2018-11-10] MEDS: OLANZapine 10 MG TABLET PO SCH ×2 (09:32→21:40)
[2018-11-10] MEDS: APIXABAN 5 MG TABLET PO SCH ×2 (09:32→21:40)
[2018-11-10] MEDS: PRENATAL VITAMINS W/ FOLIC ACID TABLET (FP) PO SCH (09:32)
[2018-11-10] MEDS: NAPHAZOLINE/PHENIRAMINE OPHTHALMIC 15 ML BOTTLE OU PRN ×2 (09:32→21:40)
[2018-11-10] MEDS: SELENIUM SULFIDE 2.25% 180 ML SHAMPOO TP SCH (09:33)
[2018-11-10] MEDS: NICOTINE 14 MG/24 HOURS TOPICAL PATCH TD SCH (09:33)
[2018-11-10] MEDS: LIDOCAINE 5% TOPICAL PATCH TP SCH (09:33)
[2018-11-10] MEDS: THIAMINE HCL 100 MG TABLET (FP) PO SCH (21:40)
[2018-11-10] MEDS: MELATONIN 5 MG TABLETS PO PRN (21:40)
[2018-11-10] MEDS: traZODone HCL 50 MG TABLET (FP) PO SCH (21:40)
[2018-11-10] MEDS: MIRTAZAPINE 30 MG TABLET (FP) PO SCH (21:40)
[2018-11-10] MEDS: LIDOCAINE PATCH REMOVAL MC SCH (21:41)
[2018-11-10] MEDS ORDERED: SUVOREXANT 10 MG TABLET PO PRN (22:00)
[2018-11-11] MEDS ORDERED: METHADONE HCL 10 MG TABLET ONE (02:40)
[2018-11-11] MEDS ORDERED: METHADONE HCL 40 MG DISPERSABLE TABLET ONE (02:40)
[2018-11-11] MEDS: METHADONE 40 MG, METHADONE 30 MG PO SCH (06:03)
[2018-11-11] MEDS: DOCUSATE SODIUM 100 MG CAPSULE (FP) PO SCH ×3 (06:03→21:47)
[2018-11-11] MEDS: hydrOXYzine PAMOATE 50 MG CAPSULE (FP) PO PRN ×2 (06:04→14:31)
[2018-11-11] MEDS ORDERED: PT OWN MED DRAWER 7, Y5N ONE (08:46)
[2018-11-11] MEDS: PRENATAL VITAMINS W/ FOLIC ACID TABLET (FP) PO SCH (09:00)
[2018-11-11] MEDS: NICOTINE 14 MG/24 HOURS TOPICAL PATCH TD SCH (09:01)
[2018-11-11] MEDS: LIDOCAINE 5% TOPICAL PATCH TP SCH (09:01)
[2018-11-11] MEDS: APIXABAN 5 MG TABLET PO SCH ×2 (09:01→21:47)
[2018-11-11] MEDS: SELENIUM SULFIDE 2.25% 180 ML SHAMPOO TP SCH (09:02)
[2018-11-11] MEDS: NAPHAZOLINE/PHENIRAMINE OPHTHALMIC 15 ML BOTTLE OU PRN (10:19)
[2018-11-11] MEDS: OLANZapine 10 MG TABLET PO SCH ×2 (10:53→21:47)
[2018-11-11] MEDS: MIRTAZAPINE 30 MG TABLET (FP) PO SCH (21:47)
[2018-11-11] MEDS: traZODone HCL 50 MG TABLET (FP) PO SCH (21:47)
[2018-11-11] MEDS: THIAMINE HCL 100 MG TABLET (FP) PO SCH (21:47)
[2018-11-11] MEDS: LIDOCAINE PATCH REMOVAL MC SCH (21:47)
[2018-11-12] MEDS ORDERED: METHADONE HCL 10 MG TABLET ONE (02:59)
[2018-11-12] MEDS ORDERED: METHADONE HCL 40 MG DISPERSABLE TABLET ONE (03:00)
[2018-11-12] MEDS: METHADONE 40 MG, METHADONE 30 MG PO SCH (06:11)
[2018-11-12] MEDS: hydrOXYzine PAMOATE 50 MG CAPSULE (FP) PO PRN (06:12)
[2018-11-12] MEDS: DOCUSATE SODIUM 100 MG CAPSULE (FP) PO SCH ×3 (06:12→21:01)
[2018-11-12] MEDS: APIXABAN 5 MG TABLET PO SCH ×2 (10:17→21:02)
[2018-11-12] MEDS: PRENATAL VITAMINS W/ FOLIC ACID TABLET (FP) PO SCH (10:17)
[2018-11-12] MEDS: OLANZapine 10 MG TABLET PO SCH ×2 (10:17→21:01)
[2018-11-12] MEDS: NAPHAZOLINE/PHENIRAMINE OPHTHALMIC 15 ML BOTTLE OU PRN ×2 (10:17→21:01)
[2018-11-12] MEDS: LIDOCAINE 5% TOPICAL PATCH TP SCH (10:18)
[2018-11-12] MEDS: NICOTINE 14 MG/24 HOURS TOPICAL PATCH TD SCH (10:20)
[2018-11-12] MEDS: traZODone HCL 50 MG TABLET (FP) PO SCH (21:01)
[2018-11-12] MEDS: THIAMINE HCL 100 MG TABLET (FP) PO SCH (21:01)
[2018-11-12] MEDS: MELATONIN 5 MG TABLETS PO PRN (21:01)
[2018-11-12] MEDS: MIRTAZAPINE 30 MG TABLET (FP) PO SCH (21:02)
[2018-11-12] MEDS: LIDOCAINE PATCH REMOVAL MC SCH (21:06)
[2018-11-13] MEDS ORDERED: METHADONE HCL 40 MG DISPERSABLE TABLET ONE (02:54)
[2018-11-13] MEDS ORDERED: METHADONE HCL 10 MG TABLET ONE (02:54)
[2018-11-13] MEDS: METHADONE 40 MG, METHADONE 30 MG PO SCH (06:08)
[2018-11-13] MEDS: hydrOXYzine PAMOATE 50 MG CAPSULE (FP) PO PRN (06:08)
[2018-11-13] MEDS: DOCUSATE SODIUM 100 MG CAPSULE (FP) PO SCH ×3 (06:08→21:51)
[2018-11-13] MEDS: NAPHAZOLINE/PHENIRAMINE OPHTHALMIC 15 ML BOTTLE OU PRN (08:44)
[2018-11-13] MEDS: OLANZapine 10 MG TABLET PO SCH ×2 (10:27→21:52)
[2018-11-13] MEDS: NICOTINE 14 MG/24 HOURS TOPICAL PATCH TD SCH (10:27)
[2018-11-13] MEDS: APIXABAN 5 MG TABLET PO SCH ×2 (10:27→21:51)
[2018-11-13] MEDS: PRENATAL VITAMINS W/ FOLIC ACID TABLET (FP) PO SCH (10:27)
[2018-11-13] MEDS: LIDOCAINE 5% TOPICAL PATCH TP SCH (10:29)
[2018-11-13] MEDS: traZODone HCL 50 MG TABLET (FP) PO SCH (21:50)
[2018-11-13] MEDS: MIRTAZAPINE 30 MG TABLET (FP) PO SCH (21:50)
[2018-11-13] MEDS: LIDOCAINE PATCH REMOVAL MC SCH (21:51)
[2018-11-13] MEDS: THIAMINE HCL 100 MG TABLET (FP) PO SCH (21:52)
[2018-11-14] MEDS ORDERED: METHADONE HCL 40 MG DISPERSABLE TABLET ONE (05:37)
[2018-11-14] MEDS ORDERED: METHADONE HCL 10 MG TABLET ONE (05:37)
[2018-11-14] MEDS: METHADONE 40 MG, METHADONE 30 MG PO SCH (05:54)
[2018-11-14] MEDS: hydrOXYzine PAMOATE 50 MG CAPSULE (FP) PO PRN ×2 (05:55→15:32)
[2018-11-14] MEDS: DOCUSATE SODIUM 100 MG CAPSULE (FP) PO SCH ×3 (05:55→21:33)
[2018-11-14] MEDS: NAPHAZOLINE/PHENIRAMINE OPHTHALMIC 15 ML BOTTLE OU PRN (09:46)
[2018-11-14] MEDS: OLANZapine 10 MG TABLET PO SCH ×2 (09:46→21:34)
[2018-11-14] MEDS: PRENATAL VITAMINS W/ FOLIC ACID TABLET (FP) PO SCH (09:46)
[2018-11-14] MEDS: APIXABAN 5 MG TABLET PO SCH ×2 (09:46→21:29)
[2018-11-14] MEDS: NICOTINE 14 MG/24 HOURS TOPICAL PATCH TD SCH (09:46)
[2018-11-14] MEDS: LIDOCAINE 5% TOPICAL PATCH TP SCH (09:46)
[2018-11-14] MEDS: traZODone HCL 50 MG TABLET (FP) PO SCH (21:29)
[2018-11-14] MEDS: LIDOCAINE PATCH REMOVAL MC SCH (21:33)
[2018-11-14] MEDS: THIAMINE HCL 100 MG TABLET (FP) PO SCH (21:34)
[2018-11-14] MEDS: MIRTAZAPINE 30 MG TABLET (FP) PO SCH (21:34)
[2018-11-15] MEDS ORDERED: METHADONE HCL 40 MG DISPERSABLE TABLET ONE (03:50)
[2018-11-15] MEDS ORDERED: METHADONE HCL 10 MG TABLET ONE (03:50)
[2018-11-15] MEDS: DOCUSATE SODIUM 100 MG CAPSULE (FP) PO SCH ×3 (05:50→21:22)
[2018-11-15] MEDS: METHADONE 40 MG, METHADONE 30 MG PO SCH (05:50)
[2018-11-15] MEDS: OLANZapine 10 MG TABLET PO SCH ×2 (10:31→21:22)
[2018-11-15] MEDS: LIDOCAINE 5% TOPICAL PATCH TP SCH (10:31)
[2018-11-15] MEDS: PRENATAL VITAMINS W/ FOLIC ACID TABLET (FP) PO SCH (10:31)
[2018-11-15] MEDS: NAPHAZOLINE/PHENIRAMINE OPHTHALMIC 15 ML BOTTLE OU PRN (10:31)
[2018-11-15] MEDS: APIXABAN 5 MG TABLET PO SCH ×2 (10:31→21:21)
[2018-11-15] MEDS: NICOTINE 14 MG/24 HOURS TOPICAL PATCH TD SCH (10:31)
[2018-11-15] MEDS: traZODone HCL 50 MG TABLET (FP) PO SCH (21:21)
[2018-11-15] MEDS: THIAMINE HCL 100 MG TABLET (FP) PO SCH (21:22)
[2018-11-15] MEDS: MIRTAZAPINE 30 MG TABLET (FP) PO SCH (21:22)
[2018-11-15] MEDS: LIDOCAINE PATCH REMOVAL MC SCH (21:22)
[2018-11-16] MEDS ORDERED: METHADONE HCL 10 MG TABLET ONE (05:25)
[2018-11-16] MEDS ORDERED: METHADONE HCL 40 MG DISPERSABLE TABLET ONE (05:26)
[2018-11-16] MEDS: DOCUSATE SODIUM 100 MG CAPSULE (FP) PO SCH ×3 (05:27→21:06)
[2018-11-16] MEDS: METHADONE 40 MG, METHADONE 30 MG PO SCH (05:27)
[2018-11-16] MEDS: LIDOCAINE 5% TOPICAL PATCH TP SCH (09:41)
[2018-11-16] MEDS: NAPHAZOLINE/PHENIRAMINE OPHTHALMIC 15 ML BOTTLE OU PRN (09:41)
[2018-11-16] MEDS: NICOTINE 14 MG/24 HOURS TOPICAL PATCH TD SCH (09:41)
[2018-11-16] MEDS: OLANZapine 10 MG TABLET PO SCH ×2 (09:41→21:07)
[2018-11-16] MEDS: PRENATAL VITAMINS W/ FOLIC ACID TABLET (FP) PO SCH (09:41)
[2018-11-16] MEDS: APIXABAN 5 MG TABLET PO SCH ×2 (09:41→21:06)
[2018-11-16] MEDS: MIRTAZAPINE 30 MG TABLET (FP) PO SCH (21:06)
[2018-11-16] MEDS: traZODone HCL 50 MG TABLET (FP) PO SCH (21:06)
[2018-11-16] MEDS: THIAMINE HCL 100 MG TABLET (FP) PO SCH (21:07)
[2018-11-16] MEDS: LIDOCAINE PATCH REMOVAL MC SCH (21:07)
[2018-11-17] MEDS ORDERED: METHADONE HCL 10 MG TABLET ONE (05:08)
[2018-11-17] MEDS ORDERED: METHADONE HCL 40 MG DISPERSABLE TABLET ONE (05:09)
[2018-11-17] MEDS: DOCUSATE SODIUM 100 MG CAPSULE (FP) PO SCH ×3 (06:38→21:00)
[2018-11-17] MEDS: METHADONE 40 MG, METHADONE 30 MG PO SCH (06:38)
[2018-11-17] MEDS: LIDOCAINE 5% TOPICAL PATCH TP SCH (09:40)
[2018-11-17] MEDS: PRENATAL VITAMINS W/ FOLIC ACID TABLET (FP) PO SCH (09:40)
[2018-11-17] MEDS: APIXABAN 5 MG TABLET PO SCH ×2 (09:40→21:00)
[2018-11-17] MEDS: NAPHAZOLINE/PHENIRAMINE OPHTHALMIC 15 ML BOTTLE OU PRN (09:40)
[2018-11-17] MEDS: OLANZapine 10 MG TABLET PO SCH ×2 (09:40→21:00)
[2018-11-17] MEDS: NICOTINE 14 MG/24 HOURS TOPICAL PATCH TD SCH (09:40)
[2018-11-17] MEDS: traZODone HCL 50 MG TABLET (FP) PO SCH (21:00)
[2018-11-17] MEDS: THIAMINE HCL 100 MG TABLET (FP) PO SCH (21:00)
[2018-11-17] MEDS: MIRTAZAPINE 30 MG TABLET (FP) PO SCH (21:00)
[2018-11-17] MEDS: LIDOCAINE PATCH REMOVAL MC SCH (21:00)
[2018-11-18] MEDS ORDERED: METHADONE HCL 10 MG TABLET ONE (02:44)
[2018-11-18] MEDS ORDERED: METHADONE HCL 40 MG DISPERSABLE TABLET ONE (02:45)
[2018-11-18] MEDS: METHADONE 40 MG, METHADONE 30 MG PO SCH (06:01)
[2018-11-18] MEDS: DOCUSATE SODIUM 100 MG CAPSULE (FP) PO SCH ×3 (06:01→21:08)
[2018-11-18] MEDS ORDERED: PT OWN MED DRAWER 7, Y5N ONE (08:51)
[2018-11-18] MEDS: PRENATAL VITAMINS W/ FOLIC ACID TABLET (FP) PO SCH (10:14)
[2018-11-18] MEDS: LIDOCAINE 5% TOPICAL PATCH TP SCH (10:14)
[2018-11-18] MEDS: OLANZapine 10 MG TABLET PO SCH ×2 (10:14→21:10)
[2018-11-18] MEDS: APIXABAN 5 MG TABLET PO SCH ×2 (10:14→21:08)
[2018-11-18] MEDS: NICOTINE 14 MG/24 HOURS TOPICAL PATCH TD SCH (10:15)
[2018-11-18] MEDS: NAPHAZOLINE/PHENIRAMINE OPHTHALMIC 15 ML BOTTLE OU PRN (10:15)
[2018-11-18] MEDS: MIRTAZAPINE 30 MG TABLET (FP) PO SCH (21:08)
[2018-11-18] MEDS: traZODone HCL 50 MG TABLET (FP) PO SCH (21:08)
[2018-11-18] MEDS: LIDOCAINE PATCH REMOVAL MC SCH (21:09)
[2018-11-18] MEDS: THIAMINE HCL 100 MG TABLET (FP) PO SCH (21:10)
[2018-11-19] MEDS ORDERED: METHADONE HCL 10 MG TABLET ONE (04:25)
[2018-11-19] MEDS ORDERED: METHADONE HCL 40 MG DISPERSABLE TABLET ONE (04:25)
[2018-11-19] MEDS: METHADONE 40 MG, METHADONE 30 MG PO SCH (06:09)
[2018-11-19] MEDS: DOCUSATE SODIUM 100 MG CAPSULE (FP) PO SCH ×3 (06:09→21:03)
[2018-11-19] MEDS: MAGNESIUM HYDROX 2400MG/30ML ORAL SUSPENSION 30 ML CUP PO PRN (06:25)
[2018-11-19] MEDS: NICOTINE 14 MG/24 HOURS TOPICAL PATCH TD SCH (09:44)
[2018-11-19] MEDS: APIXABAN 5 MG TABLET PO SCH ×2 (09:44→21:03)
[2018-11-19] MEDS: PRENATAL VITAMINS W/ FOLIC ACID TABLET (FP) PO SCH (09:44)
[2018-11-19] MEDS: OLANZapine 10 MG TABLET PO SCH ×2 (09:44→21:07)
[2018-11-19] MEDS: LIDOCAINE 5% TOPICAL PATCH TP SCH (09:44)
[2018-11-19] MEDS: NAPHAZOLINE/PHENIRAMINE OPHTHALMIC 15 ML BOTTLE OU PRN (09:45)
[2018-11-19] MEDS: traZODone HCL 50 MG TABLET (FP) PO SCH (21:04)
[2018-11-19] MEDS: LIDOCAINE PATCH REMOVAL MC SCH (21:04)
[2018-11-19] MEDS: MIRTAZAPINE 30 MG TABLET (FP) PO SCH (21:06)
[2018-11-19] MEDS: THIAMINE HCL 100 MG TABLET (FP) PO SCH (21:07)
[2018-11-20] MEDS ORDERED: METHADONE HCL 10 MG TABLET ONE (04:11)
[2018-11-20] MEDS ORDERED: METHADONE HCL 40 MG DISPERSABLE TABLET ONE (04:11)
[2018-11-20] MEDS ORDERED: METHADONE 40 MG, METHADONE 30 MG PO SCH (06:00)
[2018-11-20] MEDS ORDERED: METHADONE HCL 10 MG TABLET PO SCH (06:00)
[2018-11-20] MEDS: NAPHAZOLINE/PHENIRAMINE OPHTHALMIC 15 ML BOTTLE OU PRN (06:06)
[2018-11-20] MEDS: DOCUSATE SODIUM 100 MG CAPSULE (FP) PO SCH (06:07)
[2018-11-20 06:41] VITALS: BP 109/70; PULSE 65; TEMP 98.1
--- NOTE | 2018-11-20 06:47 | PN ---
Psychiatric Progress Note Vital Signs: Vital Signs Period Temp Pulse Resp BP Sys/Hernandez Pulse Ox Last 24 Hr 98.0 F 76 18-20 126/74 Date of Session: 11/20/18 Chief Complaint:: Discharge Note HPI: Patient addressing Alcohol, Opioid and Cocaine Dependence comorbid with Nicotine Dependence and Bipolar Disorder ROS: COPD, Hep C were medically addressed Current Medications: Active Medications Generic Name Dose Route Start Last Admin Trade Name Freq PRN Reason Stop Dose Admin Acetaminophen 650 mg 10/25/18 21:54 11/12/18 02:29 Tylenol - PO 650 mg Q4H PRN Administration FEVER Al Hydroxide/Mg Hydroxide 30 ml 10/25/18 21:54 Mylanta Oral Suspension - PO Q6H PRN DYSPEPSIA Apixaban 5 mg 10/26/18 10:00 11/19/18 21:03 Eliquis - PO 5 mg BID INEZ Administration Docusate Sodium 100 mg 10/26/18 14:00 11/20/18 06:07 Colace - PO 100 mg TID INEZ Administration Eucalyptus/Menthol/Phenol/Sorbitol 1 each 10/25/18 21:54 11/06/18 08:25 Cepastat Lozenge - MM 1 each Q4H PRN Administration SORE THROAT Guaifenesin 10 ml 10/25/18 21:54 11/07/18 10:29 Robitussin Dm - PO 10 ml Q6H PRN Administration COUGH Hydroxyzine Pamoate 50 mg 10/28/18 15:00 11/14/18 15:32 Vistaril - PO 50 mg Q4H PRN Administration FOR ITCHING Lidocaine 2 patch 11/09/18 10:00 11/19/18 09:44 Lidoderm Patch - TP 2 patch DAILY INEZ Administration Loperamide HCl 4 mg 10/25/18 21:54 Imodium - PO Q6H PRN DIARRHEA Magnesium Citrate 300 ml 10/25/18 21:54 Citroma - PO Q48H PRN CONSTIPATION Magnesium Hydroxide 30 ml 10/25/18 21:54 11/19/18 06:25 Milk Of Magnesia - PO 30 ml DAILY PRN Administration CONSTIPATION Melatonin 5 mg 10/25/18 22:00 11/12/18 21:01 Melatonin PO 5 mg HS PRN Administration INSOMNIA Methadone HCl 40 mg/ Methadone 70 mg 11/20/18 06:00 11/20/18 06:07 HCl 30 mg PO 70 mg DAILY@0600 INEZ Administration Mirtazapine 30 mg 10/26/18 22:00 11/19/18 21:06 Remeron - PO 30 mg HS INEZ Administration Miscellaneous 2 each 11/09/18 22:00 11/19/18 21:04 Lidoderm Patch Removal MC 2 each DAILY@2200 INEZ Administration Naphazoline HCl/Pheniramine Maleate 1 drop 10/29/18 09:23 11/20/18 06:06 Visine-A - OU 1 drop QID PRN Administration DRY EYES Nicotine 14 mg 10/26/18 10:00 11/19/18 09:44 Nicoderm Patch - TD 14 mg DAILY INEZ Administration Nicotine Polacrilex 2 mg 10/25/18 21:54 Nicorette Gum - BC Q2H PRN NICOTINE REPLACEMENT RX Olanzapine 10 mg 10/29/18 14:45 11/19/18 21:07 Zyprexa - PO Not Given BID INEZ Multivit/Folic Acid/Iron 1 tab 10/26/18 10:00 11/19/18 09:44 Vitamins (Sjr) - PO 1 tab DAILY INEZ Administration Pseudoephedrine/Triprolidine 1 combo 10/25/18 21:54 Actifed - PO TID PRN NASAL CONGESTION Thiamine HCl 100 mg 10/25/18 22:00 11/19/18 21:07 Vitamin B1 - PO Not Given HS INEZ Trazodone HCl 50 mg 10/26/18 22:00 11/19/18 21:04 Desyrel - PO 50 mg HS INEZ Administration Current Side Effect: No Lab tests ordered: Yes Lab tests reviewed: Yes Provider note:: Patient has completed this program today. 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 Told group underwriter that from his participation in this program, he has learned to identify his triggers and better ways to avoid them. He responded well to Zyprexa 10 mg po BID, Remeron 30 mg po HS and Trazadone 50 mg po HS. Scripts for 30 days supply of these medications are electronically transmitted to [facility] at [address] [place] [address]. He is stable for discharge today Total face to face time:: 35 Mental Status Exam - Mental Status Exam Alert and Oriented to: Time, Place, Person Cognitive Function: Fair Patient Appearance: Well Groomed Mood: Hopeful, Euthymic Affect: Appropriate Patient Behavior: Cooperative Speech Pattern: Clear Voice Loudness: Normal Thought Process: Intact, Goal Oriented Thought Disorder: Not Present Hallucinations: Denies Suicidal Ideation: Denies Homicidal Ideation: Denies Insight/Judgement: Fair Sleep: Fair Appetite: Good Muscle strength/Tone: Normal Gait/Station: Normal Psychiatric Treatment Plan - Problem List (1) Alcohol dependence Current Visit: Yes Qualifiers: Substance use status: uncomplicated Qualified Code(s): F10.20 - Alcohol dependence, uncomplicated (2) Opioid dependence Current Visit: Yes (3) Cocaine dependence Current Visit: Yes Qualifiers: Substance use status: uncomplicated Qualified Code(s): F14.20 - Cocaine dependence, uncomplicated (4) Nicotine dependence Current Visit: Yes Qualifiers: Nicotine product type: cigarettes Substance use status: uncomplicated Qualified Code(s): F17.210 - Nicotine dependence, cigarettes, uncomplicated (5) Bipolar disorder Current Visit: Yes (6) COPD (chronic obstructive pulmonary disease) Current Visit: Yes Qualifiers: COPD type: unspecified COPD Qualified Code(s): J44.9 - Chronic obstructive pulmonary disease, unspecified (7) Hep C w/o coma, chronic Current Visit: Yes Initial treatment plan: Patient is discharged today and referred to [facility] [place] for exterminator helper residential treatment
--- NOTE | 2018-11-20 08:34 | PN ---
Barb Progress Note Note: patient has history of dvt left leg,has been on eliquis 5 mgs po bid,and colace 100 mgs po tid for constipation e prescription to patient pharmacy, follow up with medical provider
== END 2018-11-20 08:41 | disposition home or self-care (01) | DRG 772 ==
LOC: YASAS 16:24 → Y3W 20:31
PROVIDERS: ADMIT Psychiatry & Neurology Psychiatry; ATTEND Psychiatry & Neurology Psychiatry
PROC: HZ42ZZZ Group Counseling for Substance Abuse Treatment, Cognitive-Behavioral (ICD-10-PCS; principal; 2018-10-25)
DX: F11.20 Opioid dependence, uncomplicated (principal); F10.20 Alcohol dependence, uncomplicated; F14.20 Cocaine dependence, uncomplicated; F17.210 Nicotine dependence, cigarettes, uncomplicated; F31.9 Bipolar disorder, unspecified; J44.9 Chronic obstructive pulmonary disease, unspecified; B18.2 Chronic viral hepatitis C; H04.129 Dry eye syndrome of unspecified lacrimal gland; Z86.718 Personal history of other venous thrombosis and embolism; Z79.01 Long term (current) use of anticoagulants; Z91.5 Personal history of self-harm
CPT/HCPCS: 36415; 80053; 81003; 85027; 86593

== ENCOUNTER 2019-02-08 11:53 | Inpatient (IN) | payer OTHER ==
[2019-02-08 12:35] VITALS: BMI 23.1
--- NOTE | 2019-02-08 14:09 | HP ---
CIWA Score Nausea/Vomitin Muscle Tremors: 2 Anxiety: 3 Agitation: 0-Normal Activity Paroxysmal Sweats: 2 Orientation: 0-Oriented Tacttile Disturbances: 2-Mild Itch/Numbness/Burn (b/l hands) Auditory Disturbances: 0-None Visual Disturbances: 2-Mild Sensitivity Headache: 0-None Present CIWA-Ar Total Score: 14 - Admission Criteria OASAS Guidelines: Admission for Medically Managed Detox: Requires at least one of the followin. CIWA greater than 12 2. Seizures within the past 24 hours 3. Delirium tremens within the past 24 hours 4. Hallucinations within the past 24 hours 5. Acute intervention needed for co occurring medical disorder 6. Acute intervention needed for co occurring psychiatric disorder 7. Severe withdrawal that cannot be handled at a lower level of care (continued vomiting, continued diarrhea, abnormal vital signs) requiring intravenous medication and/or fluids 8. Patient presents the following: CIWA greater than 12 Admission Criteria Met: Admission criteria met Admission ROS [facility] Chief Complaint: " I am too old for this, three people I know , I need detox " Allergies/Adverse Reactions: Allergies Allergy/AdvReac Type Severity Reaction Status Date / Time No Known Allergies Allergy Verified 10/25/18 20:15 History of Present Illness: 58 yo male with hx of alcohol,cocaine and heroin dependence is here seeking alcohol detox. Last detox two months ago [facility] on methadone 70 mg last medicated today, dose pending verification. Patient has medical history of Hep C, COPD, depression and anxiety. He reports suicide attempt in 2013 and denies suicidal ideation at this time. Denies hx of seizures . Report hx of alcohol blackouts with last episode two months ago. Exam Limitations: No Limitations - Ebola screening Have you traveled outside of the country in the last 21 days: No (N) Have you had contact with anyone from an Ebola affected area: No Have you been sick,other than usual withdrawal symptoms: No Do you have a fever: No - Review of Systems Constitutional: Chills, Loss of Appetite, Changes in sleep, Weakness, Unintentional Wgt. Loss EENT: reports: No Symptoms Reported Respiratory: reports: No Symptoms reported Cardiac: reports: No Symptoms Reported GI: reports: Diarrhea, Nausea, Poor Appetite, Poor Fluid Intake, Vomiting : reports: Urgency Musculoskeletal: reports: No Symptoms Reported Integumentary: reports: No Symptoms Reported Neuro: reports: Tingling, Dizziness Endocrine: reports: Increased Thirst Hematology: reports: No Symptoms Reported Psychiatric: reports: Orientated x3, Anxious Other Systems: Reviewed and Negative Patient History - Patient Medical History Hx Anemia: No Hx Asthma: No Hx Chronic Obstructive Pulmonary Disease (COPD): Yes (Not on medication) Hx Cancer: No Hx Cardiac Disorders: No Hx Congestive Heart Failure: No Hx Hypertension: No Hx Hypercholesterolemia: No Hx Pacemaker: No HX Cerebrovascular Accident: No Hx Seizures: No Hx Dementia: No Hx Diabetes: No Hx Gastrointestinal Disorders: No Hx Liver Disease: Yes (Hep C) Hx Genitourinary Disorders: No Hx Sexually Transmitted Disorders: No Hx Renal Disease (ESRD): No Hx Thyroid Disease: No Hx Human Immunodeficiency Virus (HIV): No (Negative 2017) Hx Hepatitis C: Yes (Not on medication) Hx Depression: Yes Hx Suicide Attempt: Yes (Attempt in 2013. Denies suicidal ideation at this time) Hx Bipolar Disorder: Yes Hx Schizophrenia: Yes - Patient Surgical History Past Surgical History: No - PPD History Previous Implant?: No Documented Results: Negative w/proof Date: 10/28/18 PPD to be Administered?: No - Smoking Cessation Smoking history: Current every day smoker Have you smoked in the past 12 months: Yes Aproximately how many cigarettes per day: 6 Hx Chewing Tobacco Use: No Initiated information on smoking cessation: Yes 'Breaking Loose' booklet given: 02/08/19 - Substance & Tx. History Hx Alcohol Use: Yes Hx Substance Use: Yes Substance Use Type: Alcohol, Cocaine Hx Substance Use Treatment: Yes (Last detox two months ago [facility] - Substances Abused alcohol Route: Oral Frequency: Daily Amount used: 10 x 40 oz beers Age of first use: 14 Date of Last Use: 02/08/19 Cocaine Route: Inhalation Frequency: 1-2 times per week Amount used: $20 Age of first use: 24 Date of Last Use: 02/08/19 Benzodiazepine (Klonopin) Route: Oral Frequency: 1-2 times per week Amount used: 4 mg Age of first use: 49 Date of Last Use: 02/05/19 Family Disease History - Family Disease History Family Disease History: Other: Brother (HIV and Liver Cirrhosis ) Admission Physical Exam BHS - Vital Signs Vital Signs: Vital Signs - 24 hr 02/08/19 12:33 Temperature 97.2 F L Pulse Rate 61 Respiratory 17 Rate Blood Pressure 104/56 L - Physical General Appearance: Yes: Appropriately Dressed, Mild Distress, Thin, Sweating, Anxious HEENTM: Yes: EOMI, Hearing grossly Normal, Normal ENT Inspection, Normocephalic , Normal Voice, FEROZ, Pharynx Normal, Tm's normal Respiratory: Yes: Chest Non-Tender, Lungs Clear, Normal Breath Sounds, No Respiratory Distress, No Accessory Muscle Use Neck: Yes: Within Normal Limits Breast: Yes: Breast Exam Deferred Cardiology: Yes: Regular Rhythm, Regular Rate Abdominal: Yes: Normal Bowel Sounds, Non Tender, Flat, Soft Genitourinary: Yes: Within Normal Limits Back: Yes: Normal Inspection Musculoskeletal: Yes: full range of Motion, Gait Steady, Pelvis Stable Extremities: Yes: Normal Capillary Refill, Normal Inspection, Normal Range of Motion, Non-Tender Neurological: Yes: marine reporter II-XII NML intact, Fully Oriented, Alert, Motor Strength 5/5, Depressed Affect Integumentary: Yes: Normal Color, Warm, Diaphoresis Lymphatic: Yes: Within Normal Limits - Diagnostic (1) Alcohol dependence with uncomplicated withdrawal Current Visit: Yes Status: Acute (2) COPD (chronic obstructive pulmonary disease) Current Visit: Yes Status: Chronic Qualifiers: COPD type: unspecified COPD Qualified Code(s): J44.9 - Chronic obstructive pulmonary disease, unspecified (3) Cocaine dependence Current Visit: Yes Status: Chronic Qualifiers: Substance use status: uncomplicated Qualified Code(s): F14.20 - Cocaine dependence, uncomplicated (4) Hep C w/o coma, chronic Current Visit: Yes Status: Chronic (5) Nicotine dependence Current Visit: Yes Status: Chronic Qualifiers: Nicotine product type: cigarettes Substance use status: uncomplicated Qualified Code(s): F17.210 - Nicotine dependence, cigarettes, uncomplicated Cleared for Admission [facility] - Detox or Rehab [facility] Level of Care: Medically Managed Detox Regimen/Protocol: Librium [facility] Breath Alcohol Content Breath Alcohol Content: 0.009 Urine Drug Screen - Results Drug Screen Negative: No Urine Drug Screen Results: SHALOM-Cocaine, OPI-Opiates, BZO-Benzodiazepines, MTD- Methadone, FEN-Fentanyl Inpatient Rehab Admission - Rehab Decision to Admit Inpatient rehab admission?: No
[2019-02-08] MEDS ORDERED: guaiFENesin 200 MG/10 ML 10 ML UNIT-DOSE CUPS PO PRN (14:19)
[2019-02-08] MEDS ORDERED: MAGNESIUM CITRATE 300 ML BOTTLE PO PRN (14:19)
[2019-02-08] MEDS ORDERED: NICOTINE POLACRILEX 2 MG GUM BUC PRN (14:19)
[2019-02-08] MEDS ORDERED: MAGNESIUM HYDROX 2400MG/30ML ORAL SUSPENSION 30 ML CUP PO PRN (14:19)
[2019-02-08] MEDS ORDERED: IBUPROFEN 400 MG TABLET (FP) PO PRN (14:19)
[2019-02-08] MEDS ORDERED: MAG HYDROX/AL HYDROX/SIMETH 30 ML UNIT-DOSE CUP PO PRN (14:19)
[2019-02-08] MEDS ORDERED: LOPERAMIDE HCL 2 MG CAPSULE PO PRN (14:19)
[2019-02-08] MEDS ORDERED: MENTHOL/PHENOL 1 EACH UD MM PRN (14:19)
[2019-02-08] MEDS ORDERED: P-EPHED 60MG/TRIPROLIDI 2.5MG TABLET PO PRN (14:19)
[2019-02-08] MEDS ORDERED: hydrOXYzine PAMOATE 25 MG CAPSULE (FP) PO PRN (14:19)
[2019-02-08] MEDS ORDERED: ACETAMINOPHEN 325 MG TABLET (FP) PO PRN (14:19)
[2019-02-08] MEDS: LORazepam 1 MG TABLET PO PRN (19:09)
[2019-02-08] MEDS: LORazepam 2 MG TABLET PO SCH ×3 (19:12→22:13)
[2019-02-08] MEDS: MELATONIN 5 MG TABLETS PO PRN (22:13)
[2019-02-08] MEDS: THIAMINE HCL 100 MG TABLET (FP) PO SCH (22:13)
[2019-02-09] MEDS: LORazepam 2 MG TABLET PO SCH (06:01)
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
[2019-02-09] MEDS: PRENATAL VITAMINS W/ FOLIC ACID TABLET (FP) PO SCH (10:27)
[2019-02-09] MEDS: NICOTINE 14 MG/24 HOURS TOPICAL PATCH TD SCH (10:27)
[2019-02-09] MEDS: LORazepam 1 MG TABLET PO SCH ×3 (10:27→21:59)
--- NOTE | 2019-02-09 11:43 | PN ---
[facility] CIWA - CIWA Score Nausea/Vomitin-No Nausea/No Vomiting Muscle Tremors: 3 Anxiety: 1-Mildly Anxious Agitation: 2 Paroxysmal Sweats: 1-Minimal Palms Moist Orientation: 2-Disoriented Date<2 days Tacttile Disturbances: 0-None Auditory Disturbances: 0-None Visual Disturbances: 0-None Headache: 1-Very Mild CIWA-Ar Total Score: 10 S Progress Note (SOAP) Subjective: patient is taking methadon 70 mg po daily last dose 02/08/19 verification pending doing ok today tolerate ensure better mild nausea Objective: 02/09/19 11:43 Vital Signs Temperature 96.9 F L 02/09/19 09:53 Pulse Rate 68 02/09/19 09:53 Respiratory Rate 18 02/09/19 09:53 Blood Pressure 116/72 02/09/19 09:53 O2 Sat by Pulse Oximetry (%) 02/09/19 11:46 admission lab ordered Assessment: 02/09/19 11:48 withdrawal sx Plan: continue detox
[2019-02-09] MEDS ORDERED: BENZTROPINE MESYLATE 0.5 MG TABLET (FP) PO SCH (12:15)
[2019-02-09] MEDS ORDERED: BENZTROPINE MESYLATE 1 MG TABLET (FP) PO SCH (12:17)
[2019-02-09] MEDS: HALOPERIDOL 5 MG TABLET (FP) PO SCH (12:33)
[2019-02-09] MEDS: BENZTROPINE MESYLATE 1 MG TABLET (FP) PO SCH (12:33)
[2019-02-09] MEDS: THIAMINE HCL 100 MG TABLET (FP) PO SCH (21:59)
[2019-02-09] MEDS: MIRTAZAPINE 30 MG TABLET (FP) PO SCH (21:59)
[2019-02-09] MEDS: MELATONIN 5 MG TABLETS PO PRN (22:00)
[2019-02-10] MEDS: LORazepam 1 MG TABLET PO SCH (05:07)
[2019-02-10] MEDS: NICOTINE 14 MG/24 HOURS TOPICAL PATCH TD SCH (10:05)
--- NOTE | 2019-02-10 10:05 | PN ---
[facility] CIWA - CIWA Score Nausea/Vomitin-No Nausea/No Vomiting Muscle Tremors: 2 Anxiety: 1-Mildly Anxious Agitation: 2 Paroxysmal Sweats: 1-Minimal Palms Moist Orientation: 0-Oriented Tacttile Disturbances: 1-Very Mild Itch/Numbness Auditory Disturbances: 0-None Visual Disturbances: 0-None Headache: 1-Very Mild CIWA-Ar Total Score: 8 [facility] Progress Note (SOAP) Subjective: patient is taking methadone 70 mg po daily program open at 12 pm the nurse will call and verify the dosage Objective: 02/10/19 10:06 Vital Signs Temperature 99.1 F 02/10/19 09:29 Pulse Rate 76 02/10/19 09:29 Respiratory Rate 18 02/10/19 09:29 Blood Pressure 107/62 02/10/19 09:29 O2 Sat by Pulse Oximetry (%) 02/10/19 10:07 lab pending Assessment: 02/10/19 10:07 withdrawal sx Plan: continue detox
[2019-02-10] MEDS: BENZTROPINE MESYLATE 1 MG TABLET (FP) PO SCH (10:06)
[2019-02-10] MEDS: LORazepam 1 MG TABLET PO PRN ×2 (10:06→10:42)
[2019-02-10] MEDS: PRENATAL VITAMINS W/ FOLIC ACID TABLET (FP) PO SCH (10:07)
[2019-02-10 10:19] LABS: HEMOGLOBIN 12.5 GM/dL (11.7-16.9); MCH 33.9 pg (25.7-33.7); MCHC 34.8 g/dl (32.0-35.9); MEAN CELL VOLUME 97.5 fl (80-96); MEAN PLT VOLUME 7.2 fl (7.5-11.1); PLATELET COUNT 359 K/MM3 (134-434); RBC 3.69 M/mm3 (4.00-5.60); RDW 13.6 % (11.9-15.9); WHITE BLOOD COUNT 6.2 K/mm3 (4.0-10.0)
[2019-02-10 10:43] LABS: ALBUMIN 3.2 g/dl (3.4-5.0); ALK PHOS 102 U/L (45-117); ANION GAP 7 MMOL/L (8-16); BILIRUBIN,TOTAL 0.3 mg/dL (0.2-1); BLOOD UREA NITROGEN 9 mg/dL (7-18); CALCIUM 8.4 mg/dL (8.5-10.1); CHLORIDE 101 mmol/L (98-107); CO2 29 mmol/L (21-32); CREATININE 0.8 mg/dL (0.55-1.3); GLUCOSE,RANDOM 76 mg/dL (74-106); POTASSIUM 4.2 mmol/L (3.5-5.1); SGOT/AST 14 U/L (15-37); SGPT/ALT 12 U/L (13-61); SODIUM 137 mmol/L (136-145); TOT PROT 7.3 g/dl (6.4-8.2)
[2019-02-10] MEDS: LORazepam 0.5 MG TABLET PO SCH ×3 (10:43→22:14)
[2019-02-10] MEDS ORDERED: LORazepam 0.5 MG TABLET PO PRN (11:00)
[2019-02-10] MEDS: HALOPERIDOL 5 MG TABLET (FP) PO SCH (11:24)
[2019-02-10] MEDS ORDERED: METHADONE 40 MG, METHADONE 30 MG PO ONE ×2 (14:00)
[2019-02-10] MEDS ORDERED: METHADONE HCL 10 MG TABLET PO ONE ×2 (14:00)
[2019-02-10] MEDS ORDERED: METHADONE HCL 10 MG TABLET ONE (14:22)
[2019-02-10] MEDS ORDERED: METHADONE HCL 40 MG DISPERSABLE TABLET ONE (14:22)
[2019-02-10] MEDS: THIAMINE HCL 100 MG TABLET (FP) PO SCH (22:14)
[2019-02-10] MEDS: MELATONIN 5 MG TABLETS PO PRN (22:14)
[2019-02-10] MEDS: MIRTAZAPINE 30 MG TABLET (FP) PO SCH (22:14)
--- NOTE | 2019-02-11 04:05 | PN ---
[facility] Progress Note Note: Patient is status post unwitnessed fall. Fall protocol #1 initiated. Patient was seen in his room and refused physical assessment and refused to go to the hospital. He signed the refusal of treatment form. Patient states , " Put off the light and leave me alone, I want to sleep now because I told the nurse I am not going to emergency room" Risks and consequences of denying further evaluation reinforced Vital Signs Temperature 99.8 F H 02/11/19 03:35 Pulse Rate 55 L 02/11/19 03:35 Respiratory Rate 18 02/11/19 03:35 Blood Pressure 126/72 02/11/19 03:35 O2 Sat by Pulse Oximetry (%) Action: Will continue to monitor patient
[2019-02-11] MEDS ORDERED: METHADONE HCL 10 MG TABLET ONE (04:32)
[2019-02-11] MEDS ORDERED: METHADONE HCL 40 MG DISPERSABLE TABLET ONE (04:33)
[2019-02-11] MEDS ORDERED: METHADONE HCL 10 MG TABLET PO SCH (06:00)
[2019-02-11] MEDS ORDERED: METHADONE 40 MG, METHADONE 30 MG PO SCH (06:00)
[2019-02-11] MEDS: LORazepam 0.5 MG TABLET PO SCH ×2 (07:42→10:35)
[2019-02-11] MEDS: BENZTROPINE MESYLATE 1 MG TABLET (FP) PO SCH (10:07)
[2019-02-11] MEDS: HALOPERIDOL 5 MG TABLET (FP) PO SCH (10:07)
[2019-02-11] MEDS: NICOTINE 14 MG/24 HOURS TOPICAL PATCH TD SCH (10:07)
[2019-02-11] MEDS: PRENATAL VITAMINS W/ FOLIC ACID TABLET (FP) PO SCH (10:08)
--- NOTE | 2019-02-11 11:49 | DS ---
[facility] Detox Discharge Summary Admission Date: 02/08/19 Discharge Date: 02/11/19 - History Present History: Alcohol Dependence, Sedative Dependence - Physical Exam Results Vital Signs: Vital Signs Temperature 96.7 F L 02/11/19 09:14 Pulse Rate 67 02/11/19 09:14 Respiratory Rate 18 02/11/19 09:14 Blood Pressure 113/64 02/11/19 09:14 O2 Sat by Pulse Oximetry (%) Pertinent Admission Physical Exam Findings: alcohol and benzo withdrawal sx Laboratory Last Values WBC 6.2 K/mm3 (4.0-10.0) 02/10/19 07:00 RBC 3.69 M/mm3 (4.00-5.60) L 02/10/19 07:00 Hgb 12.5 GM/dL (11.7-16.9) 02/10/19 07:00 Hct 36.0 % (35.4-49) 02/10/19 07:00 MCV 97.5 fl (80-96) H 02/10/19 07:00 MCH 33.9 pg (25.7-33.7) H 02/10/19 07:00 MCHC 34.8 g/dl (32.0-35.9) 02/10/19 07:00 RDW 13.6 % (11.9-15.9) 02/10/19 07:00 Plt Count 359 K/MM3 (134-434) D 02/10/19 07:00 MPV 7.2 fl (7.5-11.1) L D 02/10/19 07:00 Sodium 137 mmol/L (136-145) 02/10/19 07:00 Potassium 4.2 mmol/L (3.5-5.1) 02/10/19 07:00 Chloride 101 mmol/L (98-107) 02/10/19 07:00 Carbon Dioxide 29 mmol/L (21-32) 02/10/19 07:00 Anion Gap 7 MMOL/L (8-16) L 02/10/19 07:00 BUN 9 mg/dL (7-18) 02/10/19 07:00 Creatinine 0.8 mg/dL (0.55-1.3) 02/10/19 07:00 Creat Clearance w eGFR 98.94 (>60) 02/10/19 07:00 Random Glucose 76 mg/dL (74-106) 02/10/19 07:00 Calcium 8.4 mg/dL (8.5-10.1) L 02/10/19 07:00 Total Bilirubin 0.3 mg/dL (0.2-1) 02/10/19 07:00 AST 14 U/L (15-37) L 02/10/19 07:00 ALT 12 U/L (13-61) L 02/10/19 07:00 Alkaline Phosphatase 102 U/L (45-117) 02/10/19 07:00 Ammonia 25.60 umol/L (11-32) 02/10/19 14:00 Total Protein 7.3 g/dl (6.4-8.2) 02/10/19 07:00 Albumin 3.2 g/dl (3.4-5.0) L 02/10/19 07:00 RPR Titer Nonreactive (NONREACTIVE) 02/10/19 07:00 lab noted - Treatment Hospital Course: Detox Protocol Followed, Detoxed Safely, Responded well, Discharged Condition Good, Rehab Referral Accepted Patient has Accepted [facility] - Medication Discharge Medications: Ambulatory Orders Docusate Sodium [Colace -] 100 mg PO TID #90 capsule 11/20/18 Mirtazapine [Remeron -] 30 mg PO HS #30 tablet 11/20/18 Olanzapine [ZyPREXA -] 10 mg PO BID #60 tablet 11/20/18 Naloxone HCl [Narcan] 4 mg NS ASDIR PRN #1 spray 02/09/19 Apixaban [Eliquis -] 5 mg PO BID 02/11/19 - Diagnosis (1) Sedative, hypnotic or anxiolytic abuse, uncomplicated Status: Acute (2) Alcohol dependence with uncomplicated withdrawal Status: Acute (3) Hep C w/o coma, chronic Status: Chronic (4) Nicotine dependence Status: Acute Qualifiers: Nicotine product type: cigarettes Substance use status: in withdrawal Qualified Code(s): F17.213 - Nicotine dependence, cigarettes, with withdrawal - AMA Did Patient Leave Against Medical Advice: No
[2019-02-11 16:31] VITALS: BP 106/68; PULSE 66; TEMP 98.7
== END 2019-02-11 15:50 | disposition other institution (70) | DRG 773 ==
LOC: YASAS 11:53 → Y3N 18:27
PROVIDERS: ADMIT Surgery; ATTEND Surgery
PROC: HZ2ZZZZ Detoxification Services for Substance Abuse Treatment (ICD-10-PCS; principal; 2019-02-08)
DX: F10.230 Alcohol dependence with withdrawal, uncomplicated (principal); F11.20 Opioid dependence, uncomplicated; F13.230 Sedative, hypnotic or anxiolytic dependence with withdrawal, uncomplicated; F14.20 Cocaine dependence, uncomplicated; F17.213 Nicotine dependence, cigarettes, with withdrawal; F25.9 Schizoaffective disorder, unspecified; F31.9 Bipolar disorder, unspecified; F19.24 Other psychoactive substance dependence with psychoactive substance-induced mood disorder; B18.2 Chronic viral hepatitis C; J44.9 Chronic obstructive pulmonary disease, unspecified; Z91.5 Personal history of self-harm
CPT/HCPCS: 36415; 80053; 82140; 85027; 86593

== ENCOUNTER 2019-02-11 16:01 | Inpatient (IN) | payer OTHER ==
--- NOTE | 2019-02-11 12:29 | PN ---
Psychiatric Progress Note Date of Session: 02/11/19 Chief Complaint:: " I fell earlier. But I feel fine. " HPI: Called to evaluate this patient because of unsteady gait, drowsiness and falls. Mr Bertrand is about to complete detoxification treatment for alcohol, cocaine and benzodiazepine dependence. ROS: Patient is alert and fully oriented. Slurred and moderately sedated. Unsteady gait. Prone to falls. Medication(s) Change(s): Haldol and cogentin are on hold. Until further orders. Current Side Effect: Yes (sedation, unsteady gait) Lab tests ordered: Yes (ammonium level ) Lab tests reviewed: Yes Provider note:: Chart reviewed. Dr Carr's note of 02/09/19 : appreciated. Patient is interviewed. Total face to face time:: 35 Mental Status Exam - Mental Status Exam Alert and Oriented to: Time, Place, Person Cognitive Function: Grossly Intact Patient Appearance: Disheveled Mood: Withdrawn Affect: Mood Congruent, Constricted Patient Behavior: Sedated, Fatigued, Cooperative Speech Pattern: Delayed, Slurred Voice Loudness: Moderately Soft/Quiet Thought Process: Goal Oriented Thought Disorder: Not Present Hallucinations: Denies Suicidal Ideation: Denies Homicidal Ideation: Denies Insight/Judgement: Fair Sleep: Well Appetite: Poor Gait/Station: Other (unsteady) Psychiatric Treatment Plan - Problem List (1) Sedated due to medication Comment: Medications are suspected as the cause of current sedated state. Haldol + cogentin are temporarily placed on hold. (2) Alcohol dependence Qualifiers: Substance use status: uncomplicated Qualified Code(s): F10.20 - Alcohol dependence, uncomplicated (4) Cocaine dependence Qualifiers: Substance use status: uncomplicated Qualified Code(s): F14.20 - Cocaine dependence, uncomplicated (5) Nicotine dependence Qualifiers: Nicotine product type: cigarettes Substance use status: uncomplicated Qualified Code(s): F17.210 - Nicotine dependence, cigarettes, uncomplicated
[2019-02-11] MEDS ORDERED: P-EPHED 60MG/TRIPROLIDI 2.5MG TABLET PO PRN (16:19)
[2019-02-11] MEDS ORDERED: guaiFENesin 200 MG/10 ML 10 ML UNIT-DOSE CUPS PO PRN (16:19)
[2019-02-11] MEDS ORDERED: LOPERAMIDE HCL 2 MG CAPSULE PO PRN (16:19)
[2019-02-11] MEDS ORDERED: MAG HYDROX/AL HYDROX/SIMETH 30 ML UNIT-DOSE CUP PO PRN (16:19)
[2019-02-11] MEDS ORDERED: MENTHOL/PHENOL 1 EACH UD MM PRN (16:19)
[2019-02-11] MEDS ORDERED: NICOTINE POLACRILEX 2 MG GUM BC PRN (16:19)
[2019-02-11] MEDS ORDERED: MAGNESIUM CITRATE 300 ML BOTTLE PO PRN (16:19)
--- NOTE | 2019-02-11 16:19 | HP ---
[facility] Rehab Assess/Revision - Admission History Admitted to Rehab from: [facility] Date of Admission to Rehab: 02/11/19 - Findings Detox History & Physical reviewed: Yes Concur with findings: Yes Comments/Additional Findings: transferred from detox to rehab admission as per protocol Inpatient Rehab Admission - Rehab Decision to Admit Inpatient rehab admission?: Yes - Initial Determination Are CD services needed?: Yes Free of communicable disease: Yes Not in need of hospitalization: Yes - Rehab Admission Criteria Previous failed treatment: Yes Poor recovery environment: Yes Comorbidities: Yes Lacks judgement: No Patient is meeting Inpatient Rehab admission criteria:: Yes
--- NOTE | 2019-02-11 16:52 | PN ---
[facility] Progress Note Note: pt referred by nurse due to previously low BP , PT DENIES SYMPTOMS AT THIS TIME , DECLINES FURTHER MEDICAL CARE OR ASSISTANCE.
[2019-02-11] MEDS: ACETAMINOPHEN 325 MG TABLET (FP) PO PRN (19:16)
[2019-02-11] MEDS: THIAMINE HCL 100 MG TABLET (FP) PO SCH (21:02)
[2019-02-11] MEDS: MELATONIN 5 MG TABLETS PO PRN (21:02)
[2019-02-12] MEDS ORDERED: METHADONE HCL 40 MG DISPERSABLE TABLET PO SCH (06:00)
[2019-02-12] MEDS ORDERED: METHADONE HCL 10 MG TABLET ONE (06:43)
[2019-02-12] MEDS: METHADONE 40 MG, METHADONE 30 MG PO SCH (06:43)
[2019-02-12] MEDS ORDERED: METHADONE HCL 40 MG DISPERSABLE TABLET ONE (06:43)
[2019-02-12] MEDS: PRENATAL VITAMINS W/ FOLIC ACID TABLET (FP) PO SCH (09:58)
[2019-02-12] MEDS: NICOTINE 14 MG/24 HOURS TOPICAL PATCH TD PRN (09:59)
--- NOTE | 2019-02-12 10:43 | PN ---
S Progress Note Note: PT IS A 58 Y/O MALE REFERRED FROM [address] [place] [address] [address] [place] [address] LAST EVENING. PT WAS ON FALL PROTOCOL BY [address] [place] [address] INTERVENTION DUE TO FALL. PT IS CURRENTLY ON METHADONE MAINTENANCE 70 MG DAILY. PT'S PSYCH MEDS WERE HELD ON [address] [place] [address]. PT IS REQUESTING FOR CANE BUT OOB AMBULATING WITH STEADY GAIT BUT SAYS HE WOBBLES A LITTLE GETTING THROUGH [facility] ON [address] OR WHEN WALKING FAST. ALSO WANTS TO BE RE-EVALUATED FOR HIS PSYCH MED/SLEEPING MEDS. Vital Signs (72 hours) 02/11/19 02/11/19 02/11/19 20:30 22:10 23:00 Temperature 98.0 F 98.4 F Pulse Rate 86 82 67 Respiratory 16 16 Rate Blood Pressure 90/44 L 83/57 L 99/68 02/12/19 02/12/19 02/12/19 01:11 03:00 03:30 Temperature 98.0 F Pulse Rate 64 Respiratory 18 16 18 Rate Blood Pressure 90/55 L 02/12/19 06:37 Temperature 97.4 F L Pulse Rate 75 Respiratory 16 Rate Blood Pressure 98/68 NAD PLAN:ORDERED CANE FOR AMBULATION INCREASE FLUID INTAKE PSYCH RE:EVAL
[2019-02-12] MEDS: MELATONIN 5 MG TABLETS PO PRN (21:01)
[2019-02-12] MEDS: THIAMINE HCL 100 MG TABLET (FP) PO SCH (21:01)
[2019-02-13] MEDS ORDERED: METHADONE HCL 10 MG TABLET ONE (03:22)
[2019-02-13] MEDS ORDERED: METHADONE HCL 40 MG DISPERSABLE TABLET ONE (03:23)
[2019-02-13] MEDS: METHADONE 40 MG, METHADONE 30 MG PO SCH (06:24)
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
[2019-02-13] MEDS: PRENATAL VITAMINS W/ FOLIC ACID TABLET (FP) PO SCH (10:23)
[2019-02-13] MEDS: ACETAMINOPHEN 325 MG TABLET (FP) PO PRN (10:23)
[2019-02-13] MEDS: HALOPERIDOL 5 MG TABLET (FP) PO SCH (10:24)
[2019-02-13] MEDS: BENZTROPINE MESYLATE 1 MG TABLET (FP) PO SCH (10:24)
[2019-02-13] MEDS: NICOTINE 14 MG/24 HOURS TOPICAL PATCH TD PRN (10:25)
[2019-02-13] MEDS: NAPHAZOLINE/PHENIRAMINE OPHTHALMIC 15 ML BOTTLE OU SCH ×2 (16:34→21:07)
[2019-02-13] MEDS: THIAMINE HCL 100 MG TABLET (FP) PO SCH (21:07)
[2019-02-13] MEDS: MELATONIN 5 MG TABLETS PO PRN (21:08)
[2019-02-13] MEDS: MIRTAZAPINE 30 MG TABLET (FP) PO SCH (21:09)
[2019-02-14] MEDS ORDERED: METHADONE HCL 10 MG TABLET ONE (03:56)
[2019-02-14] MEDS ORDERED: METHADONE HCL 40 MG DISPERSABLE TABLET ONE (03:56)
[2019-02-14] MEDS: NAPHAZOLINE/PHENIRAMINE OPHTHALMIC 15 ML BOTTLE OU SCH ×3 (06:10→21:02)
[2019-02-14] MEDS: METHADONE 40 MG, METHADONE 30 MG PO SCH (06:10)
[2019-02-14] MEDS: NICOTINE 14 MG/24 HOURS TOPICAL PATCH TD PRN (09:53)
[2019-02-14] MEDS: HALOPERIDOL 5 MG TABLET (FP) PO SCH (09:54)
[2019-02-14] MEDS: BENZTROPINE MESYLATE 1 MG TABLET (FP) PO SCH (09:54)
[2019-02-14] MEDS: PRENATAL VITAMINS W/ FOLIC ACID TABLET (FP) PO SCH (09:54)
[2019-02-14] MEDS: THIAMINE HCL 100 MG TABLET (FP) PO SCH (21:02)
[2019-02-14] MEDS: MIRTAZAPINE 30 MG TABLET (FP) PO SCH (21:02)
[2019-02-14] MEDS: TOLNAFTATE 1% CREAM 15 GM TUBE TP SCH (21:02)
[2019-02-15] MEDS ORDERED: METHADONE HCL 40 MG DISPERSABLE TABLET ONE (03:50)
[2019-02-15] MEDS ORDERED: METHADONE HCL 10 MG TABLET ONE (03:50)
[2019-02-15] MEDS: METHADONE 40 MG, METHADONE 30 MG PO SCH (06:21)
[2019-02-15] MEDS: NAPHAZOLINE/PHENIRAMINE OPHTHALMIC 15 ML BOTTLE OU SCH ×2 (06:21→14:08)
[2019-02-15] MEDS: PRENATAL VITAMINS W/ FOLIC ACID TABLET (FP) PO SCH (09:22)
[2019-02-15] MEDS: HALOPERIDOL 5 MG TABLET (FP) PO SCH (09:23)
[2019-02-15] MEDS: BENZTROPINE MESYLATE 1 MG TABLET (FP) PO SCH (09:23)
[2019-02-15] MEDS: TOLNAFTATE 1% CREAM 15 GM TUBE TP SCH (09:24)
[2019-02-15] MEDS: NICOTINE 14 MG/24 HOURS TOPICAL PATCH TD PRN (09:25)
[2019-02-15] MEDS: IBUPROFEN 400 MG TABLET (FP) PO PRN (15:53)
[2019-02-16] MEDS: MIRTAZAPINE 30 MG TABLET (FP) PO SCH ×2 (00:03→21:05)
[2019-02-16] MEDS: TOLNAFTATE 1% CREAM 15 GM TUBE TP SCH ×3 (00:04→21:05)
[2019-02-16] MEDS: NAPHAZOLINE/PHENIRAMINE OPHTHALMIC 15 ML BOTTLE OU SCH ×4 (00:04→21:05)
[2019-02-16] MEDS: THIAMINE HCL 100 MG TABLET (FP) PO SCH ×2 (00:04→21:05)
[2019-02-16] MEDS ORDERED: METHADONE HCL 40 MG DISPERSABLE TABLET ONE (03:29)
[2019-02-16] MEDS ORDERED: METHADONE HCL 10 MG TABLET ONE (03:29)
[2019-02-16] MEDS: METHADONE 40 MG, METHADONE 30 MG PO SCH (06:05)
[2019-02-16] MEDS: PRENATAL VITAMINS W/ FOLIC ACID TABLET (FP) PO SCH (09:38)
[2019-02-16] MEDS: HALOPERIDOL 5 MG TABLET (FP) PO SCH (09:38)
[2019-02-16] MEDS: BENZTROPINE MESYLATE 1 MG TABLET (FP) PO SCH (09:38)
[2019-02-16] MEDS: NICOTINE 14 MG/24 HOURS TOPICAL PATCH TD PRN (09:39)
[2019-02-17] MEDS ORDERED: METHADONE HCL 10 MG TABLET ONE (04:05)
[2019-02-17] MEDS ORDERED: METHADONE HCL 40 MG DISPERSABLE TABLET ONE (04:06)
[2019-02-17] MEDS: NAPHAZOLINE/PHENIRAMINE OPHTHALMIC 15 ML BOTTLE OU SCH ×3 (06:12→21:00)
[2019-02-17] MEDS: METHADONE 40 MG, METHADONE 30 MG PO SCH (06:13)
[2019-02-17] MEDS: HALOPERIDOL 5 MG TABLET (FP) PO SCH (10:08)
[2019-02-17] MEDS: PRENATAL VITAMINS W/ FOLIC ACID TABLET (FP) PO SCH (10:08)
[2019-02-17] MEDS: BENZTROPINE MESYLATE 1 MG TABLET (FP) PO SCH (10:08)
[2019-02-17] MEDS: NICOTINE 14 MG/24 HOURS TOPICAL PATCH TD PRN (10:08)
[2019-02-17] MEDS: IBUPROFEN 400 MG TABLET (FP) PO PRN (10:10)
[2019-02-17] MEDS: TOLNAFTATE 1% CREAM 15 GM TUBE TP SCH ×2 (10:13→21:00)
[2019-02-17] MEDS: MIRTAZAPINE 30 MG TABLET (FP) PO SCH (21:00)
[2019-02-17] MEDS: THIAMINE HCL 100 MG TABLET (FP) PO SCH (21:01)
[2019-02-18] MEDS: NAPHAZOLINE/PHENIRAMINE OPHTHALMIC 15 ML BOTTLE OU SCH ×3 (06:13→21:21)
[2019-02-18] MEDS: METHADONE 40 MG, METHADONE 30 MG PO SCH (06:14)
[2019-02-18] MEDS ORDERED: METHADONE HCL 10 MG TABLET ONE (06:14)
[2019-02-18] MEDS ORDERED: METHADONE HCL 40 MG DISPERSABLE TABLET ONE (06:14)
[2019-02-18] MEDS: IBUPROFEN 400 MG TABLET (FP) PO PRN (08:29)
[2019-02-18] MEDS: HALOPERIDOL 5 MG TABLET (FP) PO SCH (10:28)
[2019-02-18] MEDS: BENZTROPINE MESYLATE 1 MG TABLET (FP) PO SCH (10:28)
[2019-02-18] MEDS: TOLNAFTATE 1% CREAM 15 GM TUBE TP SCH ×2 (10:28→21:21)
[2019-02-18] MEDS: PRENATAL VITAMINS W/ FOLIC ACID TABLET (FP) PO SCH (10:28)
[2019-02-18] MEDS: MIRTAZAPINE 30 MG TABLET (FP) PO SCH (21:21)
[2019-02-18] MEDS: THIAMINE HCL 100 MG TABLET (FP) PO SCH (21:21)
[2019-02-19] MEDS ORDERED: METHADONE HCL 10 MG TABLET ONE (04:14)
[2019-02-19] MEDS ORDERED: METHADONE HCL 40 MG DISPERSABLE TABLET ONE (04:15)
[2019-02-19] MEDS: METHADONE 40 MG, METHADONE 30 MG PO SCH (06:23)
[2019-02-19] MEDS: NAPHAZOLINE/PHENIRAMINE OPHTHALMIC 15 ML BOTTLE OU SCH ×3 (06:24→21:01)
[2019-02-19] MEDS: BENZTROPINE MESYLATE 1 MG TABLET (FP) PO SCH (10:00)
[2019-02-19] MEDS: HALOPERIDOL 5 MG TABLET (FP) PO SCH (10:00)
[2019-02-19] MEDS: PRENATAL VITAMINS W/ FOLIC ACID TABLET (FP) PO SCH (10:00)
[2019-02-19] MEDS: TOLNAFTATE 1% CREAM 15 GM TUBE TP SCH ×2 (10:01→21:01)
[2019-02-19] MEDS: MAGNESIUM HYDROX 2400MG/30ML ORAL SUSPENSION 30 ML CUP PO PRN (14:08)
[2019-02-19] MEDS: MIRTAZAPINE 30 MG TABLET (FP) PO SCH (21:01)
[2019-02-19] MEDS: THIAMINE HCL 100 MG TABLET (FP) PO SCH (21:01)
[2019-02-20] MEDS ORDERED: METHADONE HCL 40 MG DISPERSABLE TABLET ONE (03:27)
[2019-02-20] MEDS ORDERED: METHADONE HCL 10 MG TABLET ONE (03:27)
[2019-02-20] MEDS: NAPHAZOLINE/PHENIRAMINE OPHTHALMIC 15 ML BOTTLE OU SCH ×3 (06:18→21:04)
[2019-02-20] MEDS: METHADONE 40 MG, METHADONE 30 MG PO SCH (06:18)
[2019-02-20] MEDS: PRENATAL VITAMINS W/ FOLIC ACID TABLET (FP) PO SCH (09:39)
[2019-02-20] MEDS: BENZTROPINE MESYLATE 1 MG TABLET (FP) PO SCH (09:39)
[2019-02-20] MEDS: HALOPERIDOL 5 MG TABLET (FP) PO SCH (09:41)
[2019-02-20] MEDS: TOLNAFTATE 1% CREAM 15 GM TUBE TP SCH ×2 (09:41→21:05)
[2019-02-20] MEDS: MAGNESIUM HYDROX 2400MG/30ML ORAL SUSPENSION 30 ML CUP PO PRN (14:10)
[2019-02-20] MEDS: MIRTAZAPINE 30 MG TABLET (FP) PO SCH (21:04)
[2019-02-20] MEDS: THIAMINE HCL 100 MG TABLET (FP) PO SCH (21:05)
[2019-02-21] MEDS ORDERED: METHADONE HCL 10 MG TABLET ONE (05:50)
[2019-02-21] MEDS ORDERED: METHADONE HCL 40 MG DISPERSABLE TABLET ONE (05:50)
[2019-02-21] MEDS: NAPHAZOLINE/PHENIRAMINE OPHTHALMIC 15 ML BOTTLE OU SCH ×3 (06:09→22:31)
[2019-02-21] MEDS: METHADONE 40 MG, METHADONE 30 MG PO SCH (06:09)
[2019-02-21] MEDS: HALOPERIDOL 5 MG TABLET (FP) PO SCH (09:32)
[2019-02-21] MEDS: PRENATAL VITAMINS W/ FOLIC ACID TABLET (FP) PO SCH (09:32)
[2019-02-21] MEDS: BENZTROPINE MESYLATE 1 MG TABLET (FP) PO SCH (09:32)
[2019-02-21] MEDS: TOLNAFTATE 1% CREAM 15 GM TUBE TP SCH ×2 (09:33→22:31)
[2019-02-21] MEDS: MIRTAZAPINE 30 MG TABLET (FP) PO SCH (22:31)
[2019-02-21] MEDS: THIAMINE HCL 100 MG TABLET (FP) PO SCH (22:32)
[2019-02-22] MEDS ORDERED: METHADONE HCL 40 MG DISPERSABLE TABLET ONE (04:27)
[2019-02-22] MEDS ORDERED: METHADONE HCL 10 MG TABLET ONE (04:27)
[2019-02-22] MEDS: METHADONE 40 MG, METHADONE 30 MG PO SCH (06:17)
[2019-02-22] MEDS: NAPHAZOLINE/PHENIRAMINE OPHTHALMIC 15 ML BOTTLE OU SCH ×3 (06:19→21:05)
[2019-02-22] MEDS: HALOPERIDOL 5 MG TABLET (FP) PO SCH (09:35)
[2019-02-22] MEDS: BENZTROPINE MESYLATE 1 MG TABLET (FP) PO SCH (09:35)
[2019-02-22] MEDS: PRENATAL VITAMINS W/ FOLIC ACID TABLET (FP) PO SCH (09:35)
[2019-02-22] MEDS: NICOTINE 14 MG/24 HOURS TOPICAL PATCH TD PRN (09:36)
[2019-02-22] MEDS: TOLNAFTATE 1% CREAM 15 GM TUBE TP SCH ×2 (09:36→21:05)
[2019-02-22] MEDS: MIRTAZAPINE 30 MG TABLET (FP) PO SCH (21:05)
[2019-02-22] MEDS: THIAMINE HCL 100 MG TABLET (FP) PO SCH (21:06)
[2019-02-23] MEDS ORDERED: METHADONE HCL 40 MG DISPERSABLE TABLET ONE (04:12)
[2019-02-23] MEDS ORDERED: METHADONE HCL 10 MG TABLET ONE (04:12)
[2019-02-23] MEDS: NAPHAZOLINE/PHENIRAMINE OPHTHALMIC 15 ML BOTTLE OU SCH ×3 (05:58→21:01)
[2019-02-23] MEDS: METHADONE 40 MG, METHADONE 30 MG PO SCH (05:59)
[2019-02-23] MEDS: BENZTROPINE MESYLATE 1 MG TABLET (FP) PO SCH (09:37)
[2019-02-23] MEDS: PRENATAL VITAMINS W/ FOLIC ACID TABLET (FP) PO SCH (09:37)
[2019-02-23] MEDS: HALOPERIDOL 5 MG TABLET (FP) PO SCH (09:38)
[2019-02-23] MEDS: TOLNAFTATE 1% CREAM 15 GM TUBE TP SCH ×2 (09:38→21:01)
[2019-02-23] MEDS: MIRTAZAPINE 30 MG TABLET (FP) PO SCH (21:00)
[2019-02-23] MEDS: THIAMINE HCL 100 MG TABLET (FP) PO SCH (21:01)
[2019-02-24] MEDS ORDERED: METHADONE HCL 10 MG TABLET ONE (03:49)
[2019-02-24] MEDS ORDERED: METHADONE HCL 40 MG DISPERSABLE TABLET ONE (03:50)
[2019-02-24] MEDS: METHADONE 40 MG, METHADONE 30 MG PO SCH (06:04)
[2019-02-24] MEDS: NAPHAZOLINE/PHENIRAMINE OPHTHALMIC 15 ML BOTTLE OU SCH (06:04)
[2019-02-24 06:33] VITALS: BP 120/74; PULSE 66; TEMP 98.1
--- NOTE | 2019-02-24 07:04 | PN ---
[facility] Progress Note Note: Patient is discharged today. Scripts for 30 day supply of medications(Haldol, Cogentin, Remeron) are electronically transmitted to [facility] at [address] [place] [address]
[2019-02-24] MEDS: TOLNAFTATE 1% CREAM 15 GM TUBE TP SCH (09:40)
[2019-02-24] MEDS: BENZTROPINE MESYLATE 1 MG TABLET (FP) PO SCH (09:40)
[2019-02-24] MEDS: HALOPERIDOL 5 MG TABLET (FP) PO SCH (09:40)
[2019-02-24] MEDS: PRENATAL VITAMINS W/ FOLIC ACID TABLET (FP) PO SCH (09:40)
--- NOTE | 2019-02-24 09:44 | PN ---
[facility] Progress Note Note: PT COMPLETED REHAB AND DISCHARGED TODAY. PT MET WITH HIS COUNSELOR AND HAS BEEN REFERRED TO FOLLOW UP AT [facility] ON [address], [place]. PT REPORTS HE HAS A PCP AT [facility] [address], [place](DOES NOT REMEMBER THE NAME OF HIS PCP). REPORTS HE HAS MEDS AT HOME. PT STATES HE WILL CALL TO MAKE APPOINTMENT WITH HIS PCP. ALERT O X 3. DENIES S/H/I. Home Medications Medication Instructions Recorded Docusate Sodium [Colace -] 100 mg PO TID #90 capsule 11/20/18 Mirtazapine [Remeron -] 30 mg PO HS #30 tablet 11/20/18 Naloxone HCl [Narcan] 4 mg NS ASDIR PRN #1 spray 02/09/19 Apixaban [Eliquis -] 5 mg PO BID 02/11/19 Cogentin 0.5 mg PO 02/11/19 Methadone [Dolophine -] 70 mg PO DAILY@0600 02/11/19 Benztropine Mesylate [Cogentin -] 0.5 mg PO DAILY #30 tablet 02/24/19 Haloperidol [Haldol -] 5 mg PO DAILY #30 tablet 02/24/19 Mirtazapine [Remeron -] 30 mg PO HS #30 tablet 02/24/19 Vital Signs - 24 hr 02/24/19 02/24/19 02/24/19 00:30 03:30 06:31 Temperature 98.1 F Pulse Rate 66 Respiratory 18 18 16 Rate Blood Pressure 120/74 Laboratory Tests 02/12/19 06:30 HIV 1&2 Antibody Screen Negative HIV P24 Antigen Negative NAD MEDICALLY STABLE PLAN;DISCUSSED WITH PT TO FOLLOW UP WITH CD RECOMMENDATION AND MEDICAL MANAGEMENT INDICATED AFTER DISCHARGING TODAY.
== END 2019-02-24 11:15 | disposition home or self-care (01) | DRG 772 ==
LOC: YASAS 16:01 → Y5N 16:02
PROVIDERS: ADMIT Neuromusculoskeletal Medicine & OMM; ATTEND Neuromusculoskeletal Medicine & OMM
PROC: HZ42ZZZ Group Counseling for Substance Abuse Treatment, Cognitive-Behavioral (ICD-10-PCS; principal; 2019-02-11)
DX: F10.20 Alcohol dependence, uncomplicated (principal); F11.20 Opioid dependence, uncomplicated; F14.20 Cocaine dependence, uncomplicated; F17.213 Nicotine dependence, cigarettes, with withdrawal; F31.9 Bipolar disorder, unspecified; F25.9 Schizoaffective disorder, unspecified; F19.282 Other psychoactive substance dependence with psychoactive substance-induced sleep disorder; J44.9 Chronic obstructive pulmonary disease, unspecified; B18.2 Chronic viral hepatitis C
CPT/HCPCS: 36415; 87389

== ENCOUNTER 2019-05-13 13:07 | Inpatient (IN) | payer OTHER ==
[2019-05-13 17:16] VITALS: BMI 23.2
--- NOTE | 2019-05-13 18:34 | HP ---
COWS - Scale Resting Pulse: 1= [place] 81-100 Sweatin= Chills/Flushing Restless Observation: 1= Difficult to Sit Still Pupil Size: 1= Pupils >than Normal Bone or Joint Aches: 2= Severe Diffuse Aches Runny Nose/ Eye Tearin= Runny Nose/Eyes GI Upset > 30mins: 2= Nausea/Diarrhea Tremor Observation: 1= Tremor [place], Not Seen Yawning Observation: 2= >3x During Session Anxiety or Irritability: 1=Feels Anxious/Irritable Goose Flesh Skin: 0=Smooth Skin (Client reports he was last medicated 1 week ago at [facility] (to be verified in the morning). Client with withdrawal symptoms present and fresh track appiah.) COWS Score: 14 CIWA Score Nausea/Vomitin Muscle Tremors: 3 Anxiety: 2 Agitation: 2 Paroxysmal Sweats: 2 Orientation: 0-Oriented Tacttile Disturbances: 2-Mild Itch/Numbness/Burn Auditory Disturbances: 1-Very Mild Visual Disturbances: 1-Very Mild Sensitivity Headache: 1-Very Mild CIWA-Ar Total Score: 16 - Admission Criteria OASAS Guidelines: Admission for Medically Managed Detox: Requires at least one of the followin. CIWA greater than 12 2. Seizures within the past 24 hours 3. Delirium tremens within the past 24 hours 4. Hallucinations within the past 24 hours 5. Acute intervention needed for co occurring medical disorder 6. Acute intervention needed for co occurring psychiatric disorder 7. Severe withdrawal that cannot be handled at a lower level of care (continued vomiting, continued diarrhea, abnormal vital signs) requiring intravenous medication and/or fluids 8. Admission [facility] Chief Complaint: Withdrawal symptoms Allergies/Adverse Reactions: Allergies Allergy/AdvReac Type Severity Reaction Status Date / Time fish derived Allergy Mild Rash Verified 05/13/19 17:05 No Known Drug Allergies Allergy Verified 05/13/19 18:47 History of Present Illness: 58 y.o. man with an extensive history of alcohol, cocaine dependence and benzodiazepines is here seeking detox. He reports he last completed detox and rehab 2 months ago at [facility]. He states he is enrolled at [facility] and was last medicated about 1 week ago at 70mg (to be verified in the morning). Longest period of sobriety and illicit drug use has been 10 years. [facility] ICU reviewed and 90 tablets of 2mg alprazolam were last dispensed on 05/02/19. Exam Limitations: No Limitations - Ebola screening Have you traveled outside of the country in the last 21 days: No Have you had contact with anyone from an Ebola affected area: No - Review of Systems Constitutional: Chills, Loss of Appetite, Unintentional Wgt. Loss, Unexplained wgt Loss EENT: reports: Blurred Vision, Double Vision, Tearing, Other (Excessive yawning) Respiratory: reports: No Symptoms reported Cardiac: reports: No Symptoms Reported GI: reports: Diarrhea, Nausea, Abdominal cramping : reports: No Symptoms Reported Musculoskeletal: reports: Back Pain Integumentary: reports: No Symptoms Reported Neuro: reports: Tingling Endocrine: reports: No Symptoms Reported Hematology: reports: Anemia Psychiatric: reports: Orientated x3, Anxious, Depressed Other Systems: Reviewed and Negative Patient History - Patient Medical History Hx Anemia: Yes (JORDEN ) Hx Asthma: No Hx Chronic Obstructive Pulmonary Disease (COPD): Yes Hx Cancer: No Hx Cardiac Disorders: No Hx Congestive Heart Failure: No Hx Hypertension: No Hx Hypercholesterolemia: No Hx Pacemaker: No HX Cerebrovascular Accident: No Hx Seizures: No Hx Dementia: No Hx Diabetes: No Hx Gastrointestinal Disorders: No Hx Liver Disease: Yes (Hep C (UNTREATED)) Hx Genitourinary Disorders: No Hx Sexually Transmitted Disorders: No Hx Renal Disease (ESRD): No Hx Thyroid Disease: No Hx Human Immunodeficiency Virus (HIV): No (Negative 2017) Hx Hepatitis C: Yes Hx Depression: Yes Hx Suicide Attempt: Yes (2013, denies any SI/HI.) Hx Bipolar Disorder: Yes Hx Schizophrenia: Yes - Patient Surgical History Past Surgical History: No Anesthesia Reaction: No - PPD History Previous Implant?: Yes Documented Results: Negative w/proof Implanted On Prior R Admission?: Yes Date: 10/28/18 Results: 0 PPD to be Administered?: No - Reproductive History Patient is a Female of Child Bearing Age (11 -55 yrs old): No - Smoking Cessation Smoking history: Current every day smoker Have you smoked in the past 12 months: Yes Aproximately how many cigarettes per day: 10 Hx Chewing Tobacco Use: No Initiated information on smoking cessation: Yes 'Breaking Loose' booklet given: 05/13/19 - Substance & Tx. History Hx Alcohol Use: Yes Hx Substance Use: Yes Substance Use Type: Alcohol, Cocaine, Heroin, Tranquilizers Hx Substance Use Treatment: Yes (Detox and rehab 2 months ago at [facility] ) - Substances abused Heroin Substance route: Injection Frequency: Daily Amount used: 8 bags Age of first use: 43 Date of last use: 05/13/19 Cocaine Substance route: Inhalation Frequency: 3-6 times per week Amount used: 20 dollars Age of first use: 43 Date of last use: 05/10/19 Alcohol Substance route: Oral Frequency: Daily Amount used: 8 to 9 cans of beer Age of first use: 16 Date of last use: 05/13/19 Benzodiazepine (Klonopin) Substance route: Oral Frequency: Daily Amount used: 2 of 4 mg Age of first use: 58 Date of last use: 05/12/19 Family Disease History - Family Disease History Family Disease History: Other: Brother (HIV and Liver Cirrhosis ) Admission Physical Exam [facility] - Vital Signs Vital Signs: Vital Signs - 24 hr 05/13/19 16:59 Temperature 97.4 F L Pulse Rate 90 Respiratory 18 Rate Blood Pressure 116/71 - Physical General Appearance: Yes: Thin, Tremorous, Irritable, Sweating, Anxious HEENTM: Yes: Hearing grossly Normal, Normocephalic, Normal Voice Respiratory: Yes: Lungs Clear, Normal Breath Sounds, No Respiratory Distress, No Accessory Muscle Use Neck: Yes: No masses,lesions,Nodules, Trachea in good position Breast: Yes: Breast Exam Deferred Cardiology: Yes: Regular Rhythm, Regular Rate Abdominal: Yes: Normal Bowel Sounds, Non Tender, Flat, Soft Genitourinary: Yes: Other (N) Back: Yes: Within Normal Limits, Normal Inspection Musculoskeletal: Yes: full range of Motion, Gait Steady Extremities: Yes: Tremors Neurological: Yes: Alert, Normal Mood/Affect, Normal Response Integumentary: Yes: Track [place] Lymphatic: Yes: Within Normal Limits - Diagnostic (1) Alcohol dependence with uncomplicated withdrawal Current Visit: Yes Status: Chronic (2) Cocaine dependence Current Visit: Yes Status: Chronic Qualifiers: Substance use status: uncomplicated Qualified Code(s): F14.20 - Cocaine dependence, uncomplicated (3) Nicotine dependence Current Visit: Yes Status: Chronic Qualifiers: Nicotine product type: cigarettes Substance use status: in withdrawal Qualified Code(s): F17.213 - Nicotine dependence, cigarettes, with withdrawal (4) Sedative, hypnotic or anxiolytic abuse, uncomplicated Current Visit: Yes Status: Chronic (5) COPD (chronic obstructive pulmonary disease) Current Visit: Yes Status: Chronic Qualifiers: COPD type: unspecified COPD Qualified Code(s): J44.9 - Chronic obstructive pulmonary disease, unspecified (6) Hep C w/o coma, chronic Current Visit: Yes Status: Chronic (7) Opioid dependence on agonist therapy Current Visit: Yes Status: Chronic Comment: One time order of 10mg of methadone ordered until dose is verified. (8) History of pulmonary embolism Current Visit: Yes Status: Chronic Cleared for Admission S - Detox or Rehab [facility] Level of Care: Medically Managed (10mg of methadone ordered until dose at [facility] is verified.) Detox Regimen/Protocol: Librium Breathalyzer - Breathalyzer Breathalyzer: 0.057 Inpatient Rehab Admission - Rehab Decision to Admit Inpatient rehab admission?: No
[2019-05-13] MEDS ORDERED: MAGNESIUM CITRATE 300 ML BOTTLE PO PRN (18:41)
[2019-05-13] MEDS ORDERED: traZODone HCL 100 MG TABLET (FP) PO PRN (18:41)
[2019-05-13] MEDS ORDERED: ONDANSETRON *ODT* 4 MG TABLET SL PRN (18:41)
[2019-05-13] MEDS ORDERED: chlordiazePOXIDE HCL 25 MG CAPSULE PO ONE (18:41)
[2019-05-13] MEDS ORDERED: IBUPROFEN 400 MG TABLET (FP) PO PRN ×2 (18:41)
[2019-05-13] MEDS ORDERED: MAG HYDROX/AL HYDROX/SIMETH 30 ML UNIT-DOSE CUP PO PRN (18:41)
[2019-05-13] MEDS ORDERED: MENTHOL/PHENOL 1 EACH UD MM PRN (18:41)
[2019-05-13] MEDS ORDERED: ACETAMINOPHEN 325 MG TABLET (FP) PO PRN ×2 (18:41)
[2019-05-13] MEDS ORDERED: chlordiazePOXIDE HCL 25 MG CAPSULE PO PRN (18:41)
[2019-05-13] MEDS ORDERED: BISMUTH SUBSALICYLATE 524 MG/30 ML UD PO PRN (18:41)
[2019-05-13] MEDS ORDERED: MAGNESIUM HYDROX 2400MG/30ML ORAL SUSPENSION 30 ML CUP PO PRN (18:41)
[2019-05-13] MEDS ORDERED: METHADONE HCL 10 MG TABLET PO ONE (18:56)
[2019-05-13] MEDS: METHOCARBAMOL 500 MG TABLET PO PRN (19:52)
[2019-05-13] MEDS: THIAMINE HCL 100 MG TABLET (FP) PO SCH (22:19)
[2019-05-13] MEDS: APIXABAN 5 MG TABLET PO SCH (22:19)
[2019-05-13] MEDS: DOCUSATE SODIUM 100 MG CAPSULE (FP) PO SCH (22:19)
[2019-05-13] MEDS: chlordiazePOXIDE HCL 25 MG CAPSULE PO SCH (22:19)
[2019-05-13] MEDS: MELATONIN 5 MG TABLETS PO PRN (22:19)
[2019-05-14] MEDS: chlordiazePOXIDE HCL 25 MG CAPSULE PO SCH ×4 (06:11→22:17)
[2019-05-14] MEDS: DOCUSATE SODIUM 100 MG CAPSULE (FP) PO SCH ×3 (06:11→22:16)
[2019-05-14] MEDS: METHOCARBAMOL 500 MG TABLET PO PRN ×3 (07:13→22:24)
--- NOTE | 2019-05-14 08:04 | EKG ---
Test Reason : Blood Pressure : / mmHG Vent. Rate : 063 BPM Atrial Rate : 063 BPM P-R Int : 170 ms QRS Dur : 098 ms QT Int : 450 ms P-R-T Axes : 083 063 063 degrees QTc Int : 460 ms NORMAL SINUS RHYTHM POSSIBLE LEFT ATRIAL ENLARGEMENT BORDERLINE ECG NO PREVIOUS ECGS AVAILABLE Confirmed by GRICEL DENISE, RUBEN ([id number]) on 05/14/2019 8:04:23 AM Referred By: Confirmed By:RUBEN MONSALVE MD
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
[2019-05-14 09:59] LABS: HEMATOCRIT 36.9 % (35.4-49); HEMOGLOBIN 12.4 GM/dL (11.7-16.9); MCH 32.2 pg (25.7-33.7); MCHC 33.5 g/dl (32.0-35.9); MEAN CELL VOLUME 95.9 fl (80-96); MEAN PLT VOLUME 7.4 fl (7.5-11.1); PLATELET COUNT 210 K/MM3 (134-434); RBC 3.84 M/mm3 (4.00-5.60); RDW 14.5 % (11.9-15.9); WHITE BLOOD COUNT 3.7 K/mm3 (4.0-10.0)
[2019-05-14] MEDS ORDERED: METHADONE HCL 10 MG TABLET (FOR DETOX USE ONLY) PO ONE (10:00)
[2019-05-14] MEDS: PRENATAL VITAMINS W/ FOLIC ACID TABLET (FP) PO SCH (10:05)
[2019-05-14] MEDS: APIXABAN 5 MG TABLET PO SCH ×2 (10:05→22:17)
[2019-05-14] MEDS: NICOTINE 14 MG/24 HOURS TOPICAL PATCH TD SCH (10:05)
[2019-05-14 10:12] LABS: ALBUMIN 3.4 g/dl (3.4-5.0); BILIRUBIN,TOTAL 1.8 mg/dL (0.2-1); BLOOD UREA NITROGEN 12.5 mg/dL (7-18); CALCIUM 8.8 mg/dL (8.5-10.1); POTASSIUM 3.8 mmol/L (3.5-5.1); TOT PROT 6.8 g/dl (6.4-8.2)
--- NOTE | 2019-05-14 10:38 | PN ---
[facility] CIWA - CIWA Score Nausea/Vomitin-No Nausea/No Vomiting Muscle Tremors: 3 Anxiety: 3 Agitation: 3 Paroxysmal Sweats: 3 Orientation: 0-Oriented Tacttile Disturbances: 0-None Auditory Disturbances: 0-None Visual Disturbances: 0-None Headache: 0-None Present CIWA-Ar Total Score: 12 [facility] COWS - Scale Resting Pulse: 0= [place] 80 or Below Sweatin= Chills/Flushing Restless Observation: 1= Difficult to Sit Still Pupil Size: 0= Normal to Room Light Bone or Joint Aches: 1= Mild Discomfort Runny Nose/ Eye Tearin= Runny Nose/Eyes GI Upset > 30mins: 0= None Tremor Observation of Outstretched Hands: 2= Slight Tremor Visible Yawning Observation: 2= >3x During Session Anxiety or Irritability: 2=Irritable/Anxious Goose Flesh Skin: 0=Smooth Skin COWS Score: 11 [facility] Progress Note (SOAP) Subjective: sweats shakes interrupted sleep body aches irritable Objective: 05/14/19 10:42 Vital Signs Temperature 97.3 F L 05/14/19 10:00 Pulse Rate 58 L 05/14/19 10:00 Respiratory Rate 18 05/14/19 10:00 Blood Pressure 97/64 05/14/19 10:00 O2 Sat by Pulse Oximetry (%) Laboratory Tests 05/14/19 05/14/19 07:00 07:00 WBC 3.7 L RBC 3.84 L Hgb 12.4 Hct 36.9 MCV 95.9 MCH 32.2 MCHC 33.5 RDW 14.5 Plt Count 210 D MPV 7.4 L Sodium 143 Potassium 3.8 Chloride 108 H Carbon Dioxide 30 Anion Gap 5 L BUN 12.5 Creatinine 1.0 Est GFR (CKD-EPI)AfAm 95.06 Est GFR (CKD-EPI)NonAf 82.02 Random Glucose 101 Calcium 8.8 Total Bilirubin 1.8 H AST 23 ALT 28 Alkaline Phosphatase 91 Total Protein 6.8 Albumin 3.4 aaox3 ambulating no acute distress Assessment: 05/14/19 10:42 withdrawal sx Plan: continue detox with both librium and methadone taper increase fluids
[2019-05-14] MEDS ORDERED: clonazePAM 0.5 MG TABLET PO PRN (10:49)
--- NOTE | 2019-05-14 11:01 | PN ---
[facility] Progress Note Note: u/a toxicology was performed and results show he is +methadone, +opiates, + fentanly. Pt states he belonged to a mmtp program and was last medicated 2weeks ago; when his program was called is was confirmed and verified he was discharged from program and he was advised that if he wants to return back for mmtp he will need to apply and reinstate. pt has been made aware. As for now he will be detox from his dependence and placed on a methadone/librium taper.
[2019-05-14] MEDS: BENZTROPINE MESYLATE 1 MG TABLET (FP) PO SCH (11:43)
[2019-05-14] MEDS: HALOPERIDOL 5 MG TABLET (FP) PO SCH (11:43)
[2019-05-14] MEDS: hydrOXYzine PAMOATE 50 MG CAPSULE (FP) PO PRN (14:34)
[2019-05-14] MEDS: MIRTAZAPINE 30 MG TABLET (FP) PO SCH (22:17)
[2019-05-14] MEDS: MELATONIN 5 MG TABLETS PO PRN (22:17)
[2019-05-14] MEDS: THIAMINE HCL 100 MG TABLET (FP) PO SCH (22:17)
[2019-05-15] MEDS: DOCUSATE SODIUM 100 MG CAPSULE (FP) PO SCH ×3 (05:19→22:10)
[2019-05-15] MEDS: chlordiazePOXIDE HCL 25 MG CAPSULE PO SCH ×3 (05:19→17:34)
[2019-05-15] MEDS: hydrOXYzine PAMOATE 50 MG CAPSULE (FP) PO PRN ×3 (07:44→20:11)
[2019-05-15] MEDS: METHOCARBAMOL 500 MG TABLET PO PRN ×3 (07:45→20:12)
[2019-05-15] MEDS ORDERED: METHADONE HCL 10 MG TABLET (FOR DETOX USE ONLY) PO ONE (10:00)
[2019-05-15] MEDS: BENZTROPINE MESYLATE 1 MG TABLET (FP) PO SCH (10:07)
[2019-05-15] MEDS: PRENATAL VITAMINS W/ FOLIC ACID TABLET (FP) PO SCH (10:07)
[2019-05-15] MEDS: HALOPERIDOL 5 MG TABLET (FP) PO SCH (10:07)
[2019-05-15] MEDS: APIXABAN 5 MG TABLET PO SCH ×2 (10:07→22:10)
[2019-05-15] MEDS: NICOTINE 14 MG/24 HOURS TOPICAL PATCH TD SCH (10:08)
--- NOTE | 2019-05-15 11:34 | PN ---
S CIWA - CIWA Score Nausea/Vomitin Muscle Tremors: 2 Anxiety: 2 Agitation: 2 Paroxysmal Sweats: 1-Minimal Palms Moist Orientation: 0-Oriented Tacttile Disturbances: 1-Very Mild Itch/Numbness Auditory Disturbances: 1-Very Mild Visual Disturbances: 0-None Headache: 2-Mild CIWA-Ar Total Score: 13 [facility] COWS - Scale Resting Pulse: 0= [place] 80 or Below Sweatin= Chills/Flushing Restless Observation: 1= Difficult to Sit Still Pupil Size: 1= Pupils >than Normal Bone or Joint Aches: 2= Severe Diffuse Aches Runny Nose/ Eye Tearin= Runny Nose/Eyes GI Upset > 30mins: 2= Nausea/Diarrhea Tremor Observation of Outstretched Hands: 2= Slight Tremor Visible Yawning Observation: 1= 1-2x During Session Anxiety or Irritability: 1=Feels Anxious/Irritable Goose Flesh Skin: 0=Smooth Skin COWS Score: 13 S Progress Note (SOAP) Subjective: alert,irritable,anxious,interrupted sleep,tremor,pain in the body and back Objective: 05/15/19 11:33 Vital Signs Temperature 97.5 F L 05/15/19 09:19 Pulse Rate 61 05/15/19 09:19 Respiratory Rate 16 05/15/19 09:19 Blood Pressure 109/67 05/15/19 09:19 O2 Sat by Pulse Oximetry (%) Laboratory Last Values WBC 3.7 K/mm3 (4.0-10.0) L 05/14/19 07:00 RBC 3.84 M/mm3 (4.00-5.60) L 05/14/19 07:00 Hgb 12.4 GM/dL (11.7-16.9) 05/14/19 07:00 Hct 36.9 % (35.4-49) 05/14/19 07:00 MCV 95.9 fl (80-96) 05/14/19 07:00 MCH 32.2 pg (25.7-33.7) 05/14/19 07:00 MCHC 33.5 g/dl (32.0-35.9) 05/14/19 07:00 RDW 14.5 % (11.9-15.9) 05/14/19 07:00 Plt Count 210 K/MM3 (134-434) D 05/14/19 07:00 MPV 7.4 fl (7.5-11.1) L 05/14/19 07:00 Sodium 143 mmol/L (136-145) 05/14/19 07:00 Potassium 3.8 mmol/L (3.5-5.1) 05/14/19 07:00 Chloride 108 mmol/L (98-107) H 05/14/19 07:00 Carbon Dioxide 30 mmol/L (21-32) 05/14/19 07:00 Anion Gap 5 MMOL/L (8-16) L 05/14/19 07:00 BUN 12.5 mg/dL (7-18) 05/14/19 07:00 Creatinine 1.0 mg/dL (0.55-1.3) 05/14/19 07:00 Est GFR (CKD-EPI)AfAm 95.06 05/14/19 07:00 Est GFR (CKD-EPI)NonAf 82.02 05/14/19 07:00 Random Glucose 101 mg/dL (74-106) 05/14/19 07:00 Calcium 8.8 mg/dL (8.5-10.1) 05/14/19 07:00 Total Bilirubin 1.8 mg/dL (0.2-1) H 05/14/19 07:00 AST 23 U/L (15-37) 05/14/19 07:00 ALT 28 U/L (13-61) 05/14/19 07:00 Alkaline Phosphatase 91 U/L (45-117) 05/14/19 07:00 Total Protein 6.8 g/dl (6.4-8.2) 05/14/19 07:00 Albumin 3.4 g/dl (3.4-5.0) 05/14/19 07:00 RPR Titer Nonreactive (NONREACTIVE) 05/14/19 07:00 Assessment: 05/15/19 11:33 withdrawal symptom Plan: continue detox
[2019-05-15] MEDS: TETRAHYDROZOLINE HCL EYE DROPS OS PRN (18:58)
[2019-05-15] MEDS: chlordiazePOXIDE HCL 10 MG CAPSULE PO SCH (22:10)
[2019-05-15] MEDS: MIRTAZAPINE 30 MG TABLET (FP) PO SCH (22:10)
[2019-05-15] MEDS: THIAMINE HCL 100 MG TABLET (FP) PO SCH (22:10)
[2019-05-15] MEDS: MELATONIN 5 MG TABLETS PO PRN (22:10)
[2019-05-15] MEDS ORDERED: chlordiazePOXIDE HCL 10 MG CAPSULE PO PRN (23:00)
[2019-05-16] MEDS: TETRAHYDROZOLINE HCL EYE DROPS OS PRN (06:00)
[2019-05-16] MEDS: DOCUSATE SODIUM 100 MG CAPSULE (FP) PO SCH ×3 (06:00→22:05)
[2019-05-16] MEDS: chlordiazePOXIDE HCL 10 MG CAPSULE PO SCH ×3 (06:00→17:21)
[2019-05-16] MEDS: METHOCARBAMOL 500 MG TABLET PO PRN ×2 (06:02→17:22)
[2019-05-16] MEDS ORDERED: METHADONE HCL 10 MG TABLET (FOR DETOX USE ONLY) PO ONE (10:00)
[2019-05-16] MEDS: HALOPERIDOL 5 MG TABLET (FP) PO SCH (10:02)
[2019-05-16] MEDS: PRENATAL VITAMINS W/ FOLIC ACID TABLET (FP) PO SCH (10:02)
[2019-05-16] MEDS: APIXABAN 5 MG TABLET PO SCH ×2 (10:03→22:05)
[2019-05-16] MEDS: NICOTINE 14 MG/24 HOURS TOPICAL PATCH TD SCH (10:03)
[2019-05-16] MEDS: BENZTROPINE MESYLATE 1 MG TABLET (FP) PO SCH (10:03)
[2019-05-16] MEDS: hydrOXYzine PAMOATE 50 MG CAPSULE (FP) PO PRN ×2 (10:07→19:40)
--- NOTE | 2019-05-16 11:00 | PN ---
[facility] CIWA - CIWA Score Nausea/Vomitin-No Nausea/No Vomiting Muscle Tremors: 3 Anxiety: 2 Agitation: 3 Paroxysmal Sweats: 2 Orientation: 0-Oriented Tacttile Disturbances: 0-None Auditory Disturbances: 0-None Visual Disturbances: 0-None Headache: 0-None Present CIWA-Ar Total Score: 10 [facility] COWS - Scale Resting Pulse: 0= [place] 80 or Below Sweatin= Chills/Flushing Restless Observation: 1= Difficult to Sit Still Pupil Size: 0= Normal to Room Light Bone or Joint Aches: 2= Severe Diffuse Aches Runny Nose/ Eye Tearin= Nasal Congestion GI Upset > 30mins: 0= None Tremor Observation of Outstretched Hands: 1= Tremor [place], Not Seen Yawning Observation: 1= 1-2x During Session Anxiety or Irritability: 2=Irritable/Anxious Goose Flesh Skin: 0=Smooth Skin COWS Score: 9 [facility] Progress Note (SOAP) Subjective: sweats shakes interrupted sleep body aches Objective: 05/16/19 10:58 Vital Signs Temperature 98.1 F 05/16/19 09:19 Pulse Rate 53 L 05/16/19 09:19 Respiratory Rate 18 05/16/19 09:19 Blood Pressure 153/84 05/16/19 09:19 O2 Sat by Pulse Oximetry (%) Laboratory Tests 05/14/19 05/14/19 05/14/19 07:00 07:00 07:00 WBC 3.7 L RBC 3.84 L Hgb 12.4 Hct 36.9 MCV 95.9 MCH 32.2 MCHC 33.5 RDW 14.5 Plt Count 210 D MPV 7.4 L Sodium 143 Potassium 3.8 Chloride 108 H Carbon Dioxide 30 Anion Gap 5 L BUN 12.5 Creatinine 1.0 Est GFR (CKD-EPI)AfAm 95.06 Est GFR (CKD-EPI)NonAf 82.02 Random Glucose 101 Calcium 8.8 Total Bilirubin 1.8 H AST 23 ALT 28 Alkaline Phosphatase 91 Total Protein 6.8 Albumin 3.4 RPR Titer Nonreactive aaox3 ambulating no acute distress Assessment: 05/16/19 10:58 withdrawals sx Plan: continue detox increase fluids
[2019-05-16] MEDS: MIRTAZAPINE 30 MG TABLET (FP) PO SCH (22:05)
[2019-05-16] MEDS: THIAMINE HCL 100 MG TABLET (FP) PO SCH (22:05)
[2019-05-16] MEDS: MELATONIN 5 MG TABLETS PO PRN (22:07)
[2019-05-16] MEDS ORDERED: chlordiazePOXIDE HCL 10 MG CAPSULE PO SCH (23:00)
[2019-05-17] MEDS: DOCUSATE SODIUM 100 MG CAPSULE (FP) PO SCH (05:54)
[2019-05-17] MEDS ORDERED: METHADONE HCL 5 MG TABLET (FOR DETOX USE ONLY) PO ONE (06:00)
[2019-05-17 06:56] VITALS: BP 130/94; PULSE 76; TEMP 96.4
--- NOTE | 2019-05-17 13:27 | DS ---
[facility] Detox Discharge Summary Admission Date: 05/13/19 Discharge Date: 05/17/19 - History Present History: Alcohol Dependence, Cocaine Dependence, Opioid Dependence, Sedative Dependence, MMTP Additional Comments: Pt is medically cleared and discharged today. Pt has completed his detox protocol. As per socialworker's notes, "Counselor met with patient to discuss his aftercare plans. Patient states he is returning to his methadone program for 05/17/19. We discuss him going to [address] [place] [address] for housing. We discuss the importance of seek housing to decrease potential for drugs and alcohol. Counselor also discuss the need for 12 step groups to assist with his recovery" . Pt is encouraged to follow-up with [facility] oupatient program and also follow-up with his PMD. Pt verbalized understanding. Pt is alert and oriented x3 and in no acute respiratory distress. Pertinent Past History: H/O polysubstance abuse/alcohol use disorder. - Physical Exam Results Vital Signs: Vital Signs Temperature 96.4 F L 05/17/19 06:00 Pulse Rate 76 05/17/19 06:00 Respiratory Rate 18 05/17/19 06:00 Blood Pressure 130/94 05/17/19 06:00 O2 Sat by Pulse Oximetry (%) Vital Signs 05/17/19 06:00 Temperature 96.4 F L Pulse Rate 76 Respiratory 18 Rate Blood Pressure 130/94 Lab Results WBC 3.7 K/mm3 (4.0-10.0) L 05/14/19 07:00 RBC 3.84 M/mm3 (4.00-5.60) L 05/14/19 07:00 Hgb 12.4 GM/dL (11.7-16.9) 05/14/19 07:00 Hct 36.9 % (35.4-49) 05/14/19 07:00 MCV 95.9 fl (80-96) 05/14/19 07:00 MCHC 33.5 g/dl (32.0-35.9) 05/14/19 07:00 RDW 14.5 % (11.9-15.9) 05/14/19 07:00 Plt Count 210 K/MM3 (134-434) D 05/14/19 07:00 Sodium 143 mmol/L (136-145) 05/14/19 07:00 Potassium 3.8 mmol/L (3.5-5.1) 05/14/19 07:00 Chloride 108 mmol/L (98-107) H 05/14/19 07:00 Carbon Dioxide 30 mmol/L (21-32) 05/14/19 07:00 Anion Gap 5 MMOL/L (8-16) L 05/14/19 07:00 BUN 12.5 mg/dL (7-18) 05/14/19 07:00 Creatinine 1.0 mg/dL (0.55-1.3) 05/14/19 07:00 Random Glucose 101 mg/dL (74-106) 05/14/19 07:00 Calcium 8.8 mg/dL (8.5-10.1) 05/14/19 07:00 Labs noted. Pertinent Admission Physical Exam Findings: withdrawal symptoms. - Treatment Hospital Course: Detox Protocol Followed, Detoxed Safely, Responded well, Discharged Condition Good - Medication Discharge Medications: Ambulatory Orders Docusate Sodium [Colace -] 100 mg PO TID #90 capsule 11/20/18 Mirtazapine [Remeron -] 30 mg PO HS #30 tablet 11/20/18 Naloxone HCl [Narcan] 4 mg NS ASDIR PRN #1 spray 02/09/19 Apixaban [Eliquis -] 5 mg PO BID 02/11/19 Methadone [Dolophine -] 70 mg PO DAILY@0600 02/11/19 Benztropine Mesylate [Cogentin -] 0.5 mg PO DAILY #30 tablet 02/24/19 Haloperidol [Haldol -] 5 mg PO DAILY #30 tablet 02/24/19 Mirtazapine [Remeron -] 30 mg PO HS #30 tablet 02/24/19 - Diagnosis (1) Alcohol dependence Status: Acute (2) Opioid dependence Status: Acute (3) Alcohol dependence with uncomplicated withdrawal Status: Chronic (4) COPD (chronic obstructive pulmonary disease) Status: Chronic Qualifiers: COPD type: unspecified COPD Qualified Code(s): J44.9 - Chronic obstructive pulmonary disease, unspecified (5) Cocaine dependence Status: Chronic Qualifiers: Substance use status: uncomplicated Qualified Code(s): F14.20 - Cocaine dependence, uncomplicated (6) Hep C w/o coma, chronic Status: Chronic (7) Heroin dependence Status: Chronic (8) Nicotine dependence Status: Chronic Qualifiers: Nicotine product type: cigarettes Substance use status: in withdrawal Qualified Code(s): F17.213 - Nicotine dependence, cigarettes, with withdrawal (9) History of pulmonary embolism Status: Resolved - AMA Did Patient Leave Against Medical Advice: No
== END 2019-05-17 08:50 | disposition home or self-care (01) | DRG 773 ==
LOC: YASAS 13:07 → Y6N 18:59
PROVIDERS: ADMIT Surgery; ATTEND Surgery
PROC: HZ2ZZZZ Detoxification Services for Substance Abuse Treatment (ICD-10-PCS; principal; 2019-05-13)
DX: F10.230 Alcohol dependence with withdrawal, uncomplicated (principal); F11.20 Opioid dependence, uncomplicated; F14.20 Cocaine dependence, uncomplicated; F19.24 Other psychoactive substance dependence with psychoactive substance-induced mood disorder; F19.282 Other psychoactive substance dependence with psychoactive substance-induced sleep disorder; F25.9 Schizoaffective disorder, unspecified; F31.9 Bipolar disorder, unspecified; D50.9 Iron deficiency anemia, unspecified; B18.2 Chronic viral hepatitis C; Z86.711 Personal history of pulmonary embolism; Z91.5 Personal history of self-harm; Z79.01 Long term (current) use of anticoagulants
CPT/HCPCS: 36415; 80053; 85027; 86593; 93005; 93010